=== PATIENT | male | born 1955 | race Caucasian/White ===

== ENCOUNTER 2024-10-16 17:36 | Inpatient (IN) | payer MEDICARE, SELFPAY ==
[2024-10-16] VITALS (7 sets, daily range): BP systolic 93–145; BP diastolic 66–91; PULSE 97–146; RESP 11–20; TEMP 36.7; O2SAT 93–99; BMI 28.5
--- NOTE | 2024-10-16 17:42 | CTR_ITS ---
PROCEDURE INFORMATION: Exam: CT Abdomen And Pelvis With Contrast Exam date and time: 10/16/2024 6:17 PM Age: 69 years old Clinical indication: Vomiting. Surgery type: Appy; Patient HX: Hematemesis with tarry stool. ; Abd pain/upper gi bleed TECHNIQUE: Imaging protocol: Computed tomography of the abdomen and pelvis with contrast. Radiation optimization: All CT scans at this facility use at least one of these dose optimization techniques: automated exposure control; mA and/or kV adjustment per patient size (includes targeted exams where dose is matched to clinical indication); or iterative reconstruction. Contrast material: OMNI 350; Contrast volume: 100 ml; Contrast route: INTRAVENOUS (IV); COMPARISON: No relevant prior studies available. RADIATION DOSE METRICS: Total DLP (mGy-cm): 817.34 FINDINGS: Esophagus: There is mucosal thickening of the distal esophagus which is dilated and fluid-filled. Diaphragm: Small hiatal hernia. Liver: Normal. No mass. Gallbladder and biliary ducts: Normal. No calcified stones. No ductal dilation. Pancreas: Normal. No ductal dilation. Spleen: Normal. No splenomegaly. Adrenal glands: Normal. No mass. Kidneys and ureters: Normal. No hydronephrosis. Stomach and bowel: There is a focus of extraluminal inflammation with central fat density in the mesentery adjacent to the distal descending colon. This is consistent with acute epiploic appendagitis. Appendix: No evidence of appendicitis. Intraperitoneal space: Unremarkable. No free air. No significant fluid collection. Vasculature: Unremarkable. No abdominal aortic aneurysm. Lymph nodes: Unremarkable. No enlarged lymph nodes. Urinary bladder: Unremarkable as visualized. Reproductive: Prostate gland indents the base of the bladder consistent with median lobe enlargement. Bones/joints: There are degenerative changes in the visualized spine. Chronic anterior compression fracture at the anterior aspect of the L3 superior endplate. There are lower lumbar broad-based disc osteophyte complexes contributing to canal and bilateral neural foramina narrowing. Soft tissues: Unremarkable. CT/CT abdomen pelvis w con* [id number] IMPRESSION: 1. There is mucosal thickening of the distal esophagus which is dilated and fluid-filled. 2. Acute epiploic appendagitis adjacent to the distal descending colon. 3. Prostate gland indents the base of the bladder consistent with median lobe enlargement.
--- NOTE | 2024-10-16 17:42 | ECG_ITS ---
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 Measurements Intervals [place] Rate: 102 P: 57 DC: 148 QRS: 39 QRSD: 88 T: 61 QT: 326 QTc: 426 Interpretive Statements SINUS TACHYCARDIA No previous ECG available for comparison Electronically Signed On 10-18-2024 20:18:19 DRAFTING DETAILER by Terrence Browne M.D. [id number]
[2024-10-16 17:51] LABS: Basophils # 0.1 10^3/uL (0.0-0.1); Basophils % 0.7 %; Eosinophils # 0.1 10^3/uL (0.0-0.8); Eosinophils % 1.1 %; Hematocrit 38.1 % (37-53); Lymphocytes # 2.5 10^3/uL (0.8-4.8); Lymphocytes % 21.2 %; Mean Corpuscular HGB Conc 31.5 g/dL (30-55); Mean Corpuscular Hemoglobin 30.7 pg (27-33); Mean Corpuscular Volume 97.4 fl (82-101); Monocytes # 0.9 10^3/uL (0.2-0.9); Monocytes % 7.4 %; Neutrophils % 69.3 %; Nucleated Red Blood Cells % 0 %; Platelet Count 256 10^3/cmm (157-399); Red Blood Count 3.91 10^6/uL (3.85-5.65); Red Cell Distribution Width 12.2 % (12.1-15.1); White Blood Count 11.68 10^3/uL (3.29-11.43)
--- NOTE | 2024-10-16 17:56 | ED_ITS ---
Documented by User: Miguel Coughlin DO 10/19/24 14:56 HPI - GI Bleed 2 General: Chief complaint: GI Bleed Stated complaint: gi bleed Time Seen by Provider: 10/16/24 17:40 History of Present Illness: 69-year-old male presents emergency room via EMS with complaint of sudden onset of hematemesis 30 minutes prior to arrival. He had melanic stools beginning yesterday and some maroonish discoloration of the stool today. He is on clopidogrel no other anticoagulants. He is not have a history of alcoholic liver cirrhosis or any or GUADARRAMA. He has no known previous history of GI bleed or transfusions. He has some mild epigastric discomfort. Associated symptoms: Denies abdominal pain, chills, fever(s) or rash Related Data Home Medications Medication Instructions Recorded Confirmed hydroxyzine HCl 25 mg tablet 25 mg PO 1XD 10/17/24 10/17/24 Previous Rx's Medication Instructions Recorded ondansetron 4 mg disintegrating 4 mg PO Q8H PRN nausea and 10/19/24 tablet vomiting 10 days #30 tabs pantoprazole 40 mg tablet,delayed 40 mg PO BID 4 weeks #56 tabs 10/19/24 release (Protonix) sucralfate 1 gram tablet (Carafate) 1 g PO BID 4 weeks #56 tabs 10/19/24 Allergies Allergy/AdvReac Type Severity Reaction Status Date / Time doxycycline Allergy Mild ALGY-Rash Verified 10/17/24 10:29 Beef Containing Products Allergy ALGY-Hives Verified 10/17/24 10:28 Review of Systems 2 Const: Denies: fever(s) or chills Card: Denies: chest pain Resp: Denies: dyspnea GI: Denies: abdominal pain : Denies: dysuria, urinary frequency or urinary urgency Musc: Denies: neck pain or back pain Skin/Breast: Denies: rash PFSH ED 2 PFSH: Medical History (Updated 10/17/24 @ 12:56 by Mindy Whitaker MD) History of CAD (coronary artery disease) Surgical History (Updated 10/16/24 @ 21:27 by Jamari Holguin MD) History of appendectomy History of colonoscopy Family History Mother Alzheimer's dementia Social History (Updated 10/16/24 @ 21:28 by Jamari Holguin MD) Smoking and tobacco/nicotine status: never used tobacco/nicotine Alcohol intake: current Alcohol intake frequency: 0-2 Drinks per Day Substance/Drug Use: never Physical Exam 2 Const: GENERAL APPEARANCE: cooperative ORIENTATION/CONSCIOUSNESS: Yes awake, Yes oriented to person, Yes oriented to place and Yes oriented to time HENMT: COMMON NORMALS: normocephalic, atraumatic and hearing grossly normal bilaterally HEAD & SCALP: normocephalic and atraumatic Resp: COMMON NORMALS: normal respiratory effort, No retractions, No use of accessory muscles and clear to auscultation bilaterally AUSCULTATION: clear to auscultation bilaterally Cardio: COMMON NORMALS: regular rate, regular rhythm and No murmurs present (Cardio) RATE: regular rate RHYTHM: regular rhythm GI: COMMON NORMALS: No hepatosplenomegaly present AUSCULTATION: Yes normoactive bowel sounds PALPATION: Yes Tenderness to palpation present (GI), No Guarding due to palpation present (GI) and Yes No hepatosplenomegaly present Extremity: COMMON NORMALS: normal to inspection, capillary refill normal, no clubbing, cyanosis or edema, no calf tenderness and no pedal edema Neuro: SENSORIUM/ORIENTATION: Yes oriented to person, Yes oriented to place and Yes oriented to time Skin: COMMON NORMALS: no rashes or lesions noted GENERAL SKIN EXAM: no rashes or lesions noted Course 2 Vital Signs: Vital signs: Vital Signs Temperature 98.1 F 10/19/24 07:54 Pulse Rate 103 H 10/19/24 10:44 Respiratory Rate 16 10/19/24 11:10 Blood Pressure 145/72 10/19/24 10:44 Pulse Oximetry 94 10/19/24 07:54 Oxygen Delivery Me thod Room Air 10/19/24 07:54 Oxygen Flow Rate 1 10/18/24 04:00 MDM - GI Bleed Medical Decision Making Care signed out to Dr. Borjas at change of shift. See final notes for diagnosis and disposition. Lab Data 10/19/24 12:26 10/19/24 04:28 Radiology Impressions Abdomen/Pelvis CT 10/16/24 17:42 IMPRESSION: 1. There is mucosal thickening of the distal esophagus which is dilated and fluid-filled. 2. Acute epiploic appendagitis adjacent to the distal descending colon. 3. Prostate gland indents the base of the bladder consistent with median lobe enlargement. Chest X-Ray 10/18/24 16:47 IMPRESSION: As above. Laboratory Results WBC 11.68 10^3/uL (3.29-11.43) H 10/16/24 17:41 RBC 3.91 10^6/uL (3.85-5.65) 10/16/24 17:41 Hgb 12.00 g/dL (11.27-16.99) 10/16/24 17:41 Hct 38.1 % (37-53) 10/16/24 17:41 MCV 97.4 fl (82-101) 10/16/24 17:41 MCH 30.7 pg (27-33) 10/16/24 17:41 MCHC 31.5 g/dL (30-55) 10/16/24 17:41 RDW 12.2 % (12.1-15.1) 10/16/24 17:41 Plt Count 256 10^3/cmm (157-399) 10/16/24 17:41 MPV 10.0 fL (7.4-10.4) 10/16/24 17:41 Neut % (Auto) 69.3 % 10/16/24 17:41 Lymph % (Auto) 21.2 % 10/16/24 17:41 Dickinson % (Auto) 7.4 % 10/16/24 17:41 Eos % (Auto) 1.1 % 10/16/24 17:41 Baso % (Auto) 0.7 % 10/16/24 17:41 Neut # (Auto) 8.10 10^3/uL (1.8-7.7) H 10/16/24 17:41 Lymph # (Auto) 2.5 10^3/uL (0.8-4.8) 10/16/24 17:41 Dickinson # (Auto) 0.9 10^3/uL (0.2-0.9) 10/16/24 17:41 Eos # (Auto) 0.1 10^3/uL (0.0-0.8) 10/16/24 17:41 Baso # (Auto) 0.1 10^3/uL (0.0-0.1) 10/16/24 17:41 Nucleated RBC % (auto) 0 % 10/16/24 17:41 Nucleated RBCs # 0.0 /100WBC 10/16/24 17:41 PT 13.60 SECONDS (12.1-14.9) 10/16/24 17:41 INR 1.01 (0.8-1.2) 10/16/24 17:41 APTT 22.5 SECONDS (23.9-36.7) L 10/16/24 17:41 Sodium 141 mmol/L (136-145) 10/16/24 17:41 Potassium 4.3 mmol/L (3.5-5.1) 10/16/24 17:41 Chloride 108 mmol/L (98-107) H 10/16/24 17:41 Carbon Dioxide 22 mmol/L (22-29) 10/16/24 17:41 Anion Gap 15.3 (5-19) 10/16/24 17:41 BUN 37 mg/dL (8-23) H 10/16/24 17:41 Creatinine 1.1 mg/dL (0.7-1.2) 10/16/24 17:41 GFR Calculation Not Reportable 10/16/24 17:41 Glucose 154 mg/dL (65-115) H 10/16/24 17:41 Calculated Osmolality 304 mOsm/kg (285-295) H 10/16/24 17:41 Calcium 8.7 mg/dL (8.5-10.5) 10/16/24 17:41 Iron 165 ug/dL (59-158) H 10/16/24 17:41 TIBC 322 mcg/dl 10/16/24 17:41 % Saturation 51.2 % (20-50) H 10/16/24 17:41 Unsat Iron Binding 157 ug/dL (112-347) 10/16/24 17:41 Ferritin 42 ng/mL (30-400) 10/16/24 17:41 Total Bilirubin 0.3 mg/dL (0.15-1.2) 10/16/24 17:41 AST 13 U/L (0-40) 10/16/24 17:41 ALT 18 U/L (0-41) 10/16/24 17:41 Alkaline Phosphatase 69 U/L (40-130) 10/16/24 17:41 Troponin T Baseline 8 ng/L (0-15) 10/16/24 17:41 Total Protein 6.0 g/dL (6.6-8.7) L 10/16/24 17:41 Albumin 3.6 g/dL (3.5-5.2) 10/16/24 17:41 Globulin 2.4 g/dL (1.3-4.6) 10/16/24 17:41 Blood Type B Positive 10/16/24 18:37 Rho(D) Type Rh positive 10/16/24 18:37 Antibody Screen Negative 10/16/24 18:37 Discharge Plan Discharge Patient Disposition: Admitted As Inpatient Admit Provider: Jamari Holguin Clinical Impression: Upper gastrointestinal hemorrhage Condition: Fair Discharge Diet: Usual diet Discharge Activity: Resume usual activity Coding Level of Care Code ED Public Speaking Coach for Chg Fwd Documented by User: Drew Borjas DO 10/16/24 21:20 HPI - GI Bleed 2 General: Chief complaint: GI Bleed Stated complaint: gi bleed Time Seen by Provider: 10/16/24 17:40 Related Data Home Medications Medication Instructions Recorded Confirmed hydroxyzine HCl 25 mg tablet 25 mg PO 1XD 10/17/24 10/17/24 Previous Rx's Medication Instructions Recorded ondansetron 4 mg disintegrating 4 mg PO Q8H PRN nausea and 10/19/24 tablet vomiting 10 days #30 tabs pantoprazole 40 mg tablet,delayed 40 mg PO BID 4 weeks #56 tabs 10/19/24 release (Protonix) sucralfate 1 gram tablet (Carafate) 1 g PO BID 4 weeks #56 tabs 10/19/24 Allergies Allergy/AdvReac Type Severity Reaction Status Date / Time doxycycline Allergy Mild ALGY-Rash Verified 10/17/24 10:29 Beef Containing Products Allergy ALGY-Hives Verified 10/17/24 10:28 PFSH ED 2 PFSH: Medical History (Updated 10/17/24 @ 12:56 by Mindy Whitaker MD) History of CAD (coronary artery disease) Surgical History (Updated 10/16/24 @ 21:27 by Jamari Holguin MD) History of appendectomy History of colonoscopy Family History Mother Alzheimer's dementia Social History (Updated 10/16/24 @ 21:28 by Jamari Holguin MD) Smoking and tobacco/nicotine status: never used tobacco/nicotine Alcohol intake: current Alcohol intake frequency: 0-2 Drinks per Day Substance/Drug Use: never Course 2 Vital Signs: Vital signs: Vital Signs Temperature 98.1 F 10/19/24 07:54 Pulse Rate 103 H 10/19/24 10:44 Respiratory Rate 16 10/19/24 11:10 Blood Pressure 145/72 10/19/24 10:44 Pulse Oximetry 94 10/19/24 07:54 Oxygen Delivery Me thod Room Air 10/19/24 07:54 Oxygen Flow Rate 1 10/18/24 04:00 MDM - GI Bleed Medical Decision Making Care signed out to Dr. Borjas at change of shift. See final notes for diagnosis and disposition. 69-year-old male checked out at shift change. This gentleman presents with an upper GI bleed history. He has vomited several times in the emergency department, during which she becomes very tachycardic, and his blood pressure drops. Otherwise, he has been slightly tachycardic in the 110s, with normotensive blood pressures. His hemoglobin is 12. His platelet count is normal. He has no history of alcoholism or liver disease. His liver enzymes are normal. Initial troponin is 8. Type and screen is completed. CT shows mucosal thickening of the distal esophagus which is dilated and fluid-filled. He is not aware of any food bolus type episode at home. Hemoglobin 2 hours later is 11. He has been given IV Protonix, IV Zofran, and fluid. He has also been given tranexamic acid. Morphine and Haldol have been given for pain/Spasm, and nausea as well. Spoke with surgery. They are willing to consult, and scope if necessary. Spoke with hospitalist. He will go to the ICU because of the episodes of tachycardia. Hospitalist is seeing the patient in the ER. Lab Data 10/19/24 12:26 10/19/24 04:28 Radiology Impressions Abdomen/Pelvis CT 10/16/24 17:42 IMPRESSION: 1. There is mucosal thickening of the distal esophagus which is dilated and fluid-filled. 2. Acute epiploic appendagitis adjacent to the distal descending colon. 3. Prostate gland indents the base of the bladder consistent with median lobe enlargement. Chest X-Ray 10/18/24 16:47 IMPRESSION: As above. Laboratory Results WBC 11.68 10^3/uL (3.29-11.43) H 10/16/24 17:41 RBC 3.91 10^6/uL (3.85-5.65) 10/16/24 17:41 Hgb 12.00 g/dL (11.27-16.99) 10/16/24 17:41 Hct 38.1 % (37-53) 10/16/24 17:41 MCV 97.4 fl (82-101) 10/16/24 17:41 MCH 30.7 pg (27-33) 10/16/24 17:41 MCHC 31.5 g/dL (30-55) 10/16/24 17:41 RDW 12.2 % (12.1-15.1) 10/16/24 17:41 Plt Count 256 10^3/cmm (157-399) 10/16/24 17:41 MPV 10.0 fL (7.4-10.4) 10/16/24 17:41 Neut % (Auto) 69.3 % 10/16/24 17:41 Lymph % (Auto) 21.2 % 10/16/24 17:41 Dickinson % (Auto) 7.4 % 10/16/24 17:41 Eos % (Auto) 1.1 % 10/16/24 17:41 Baso % (Auto) 0.7 % 10/16/24 17:41 Neut # (Auto) 8.10 10^3/uL (1.8-7.7) H 10/16/24 17:41 Lymph # (Auto) 2.5 10^3/uL (0.8-4.8) 10/16/24 17:41 Dickinson # (Auto) 0.9 10^3/uL (0.2-0.9) 10/16/24 17:41 Eos # (Auto) 0.1 10^3/uL (0.0-0.8) 10/16/24 17:41 Baso # (Auto) 0.1 10^3/uL (0.0-0.1) 10/16/24 17:41 Nucleated RBC % (auto) 0 % 10/16/24 17:41 Nucleated RBCs # 0.0 /100WBC 10/16/24 17:41 PT 13.60 SECONDS (12.1-14.9) 10/16/24 17:41 INR 1.01 (0.8-1.2) 10/16/24 17:41 APTT 22.5 SECONDS (23.9-36.7) L 10/16/24 17:41 Sodium 141 mmol/L (136-145) 10/16/24 17:41 Potassium 4.3 mmol/L (3.5-5.1) 10/16/24 17:41 Chloride 108 mmol/L (98-107) H 10/16/24 17:41 Carbon Dioxide 22 mmol/L (22-29) 10/16/24 17:41 Anion Gap 15.3 (5-19) 10/16/24 17:41 BUN 37 mg/dL (8-23) H 10/16/24 17:41 Creatinine 1.1 mg/dL (0.7-1.2) 10/16/24 17:41 GFR Calculation Not Reportable 10/16/24 17:41 Glucose 154 mg/dL (65-115) H 10/16/24 17:41 Calculated Osmolality 304 mOsm/kg (285-295) H 10/16/24 17:41 Calcium 8.7 mg/dL (8.5-10.5) 10/16/24 17:41 Iron 165 ug/dL (59-158) H 10/16/24 17:41 TIBC 322 mcg/dl 10/16/24 17:41 % Saturation 51.2 % (20-50) H 10/16/24 17:41 Unsat Iron Binding 157 ug/dL (112-347) 10/16/24 17:41 Ferritin 42 ng/mL (30-400) 10/16/24 17:41 Total Bilirubin 0.3 mg/dL (0.15-1.2) 10/16/24 17:41 AST 13 U/L (0-40) 10/16/24 17:41 ALT 18 U/L (0-41) 10/16/24 17:41 Alkaline Phosphatase 69 U/L (40-130) 10/16/24 17:41 Troponin T Baseline 8 ng/L (0-15) 10/16/24 17:41 Total Protein 6.0 g/dL (6.6-8.7) L 10/16/24 17:41 Albumin 3.6 g/dL (3.5-5.2) 10/16/24 17:41 Globulin 2.4 g/dL (1.3-4.6) 10/16/24 17:41 Blood Type B Positive 10/16/24 18:37 Rho(D) Type Rh positive 10/16/24 18:37 Antibody Screen Negative 10/16/24 18:37 All radiology interpretation(s) finalized by discharge Discharge Plan Discharge Patient Disposition: Admitted As Inpatient Admit Provider: Jamari Holguin Clinical Impression: Upper gastrointestinal hemorrhage Condition: Fair Discharge Diet: Usual diet Discharge Activity: Resume usual activity Coding Level of Care Code ED Public Speaking Coach for Pamela Burgess
[2024-10-16 18:04] LABS: INR 1.01 (0.8-1.2)
[2024-10-16 18:05] LABS: Partial Thromboplastin Time 22.5 SECONDS (23.9-36.7)
[2024-10-16 18:08] LABS: Alanine Aminotransferase 18 U/L (0-41); Albumin Level 3.6 g/dL (3.5-5.2); Alkaline Phosphatase 69 U/L (40-130); Anion Gap 15.3 (5-19); Aspartate Amino Transferase 13 U/L (0-40); Blood Urea Nitrogen 37 mg/dL (8-23); Calcium 8.7 mg/dL (8.5-10.5); Carbon Dioxide 22 mmol/L (22-29); Chloride 108 mmol/L (98-107); Creatinine Clr Calc Pharmacy 73.7582; Globulin 2.4 g/dL (1.3-4.6); Glucose 154 mg/dL (65-115); Osmolality Calculated 304 mOsm/kg (285-295); Potassium 4.3 mmol/L (3.5-5.1); Sodium 141 mmol/L (136-145); Total Bilirubin 0.3 mg/dL (0.15-1.2)
[2024-10-16] MEDS: iohexol 350 mg/mL 500 mL Btl (per mL) IV (18:18)
[2024-10-16] MEDS: tranexamic acid 1,000 MG/100 ML PREMIX 600 MG IV (18:28)
[2024-10-16] MEDS: pantoprazole 40 mg SDV 80 MG IVP (18:29)
[2024-10-16] MEDS: ondansetron 2 mg/ML SDV 2 mL 4 MG IVP (19:23)
[2024-10-16] MEDS: sodium chloride 0.9% 1,000 ML 999 ML IV (19:23)
[2024-10-16] MEDS: morphine 4 mg/mL SDV 1 mL IVP (20:01)
--- NOTE | 2024-10-16 20:01 | PC.NURSE ---
Pt. has intermittent back pain and spasms that he states that he has to stand up for. During episodes , pt. is diaphoretic and pale. Ekg done on patient and morphine given for back pain. Dr. Borjas notified.
[2024-10-16 20:46] LABS: Hematocrit 33.4 % (37-53)
[2024-10-16 20:50] LABS: Troponin(5th) Baseline 8 ng/L (0-15)
[2024-10-16 21:02] LABS: Troponin 5 2HR 22.27 ng/L (0-15)
[2024-10-16] MEDS: haloperidol inj 5 mg/mL INJ 1 mL 3 MG IVP (21:03)
[2024-10-16 21:09] LABS: Troponin 5 2HR Delta 14.27 ABS# (0-10)
--- NOTE | 2024-10-16 21:25 | P.HP_ITS ---
Providers/Chief Complaint 2 Admitting Physician: Jamari Holguin MD Chief Complaint: gi bleed History of Present Illness Gianni Maurer is a 69 year old male with a past medical history of CAD 4 stents placed, many years ago, is on aspirin and Plavix, history of BPH, who presents to [facility] due to coffee-ground emesis, black tarry stools. Currently patient alert oriented x 3, following all commands, heart rates in the 120s sinus tachycardia blood pressure 107/75, 93% on room air, he is alert oriented x 3, following all commands. Patient tells me that he woke up this morning, with coffee-ground emesis in his mouth, throughout the day, he continued to have episodes of coffee-ground emesis and black tarry stools associate with nausea, vomiting, retching. Does report feeling lightheaded and dizzy, no chest pain, no palpitations, no shortness of breath. He does use aspirin and Plavix. Denies any NSAID use. Denies a history of gastric cancer, or gastric ulcers. He denies ever having a EGD. But did have a colonoscopy 2 weeks ago which was within normal limits done in [place]. He does report a chronic history of acid reflux disease. Review of Systems 2 Const: Denies: fever(s) Card: Denies: chest pain Resp: Denies: dyspnea GI: Reports: nausea, vomiting and melena PFSH Acute 2 PFSH: Medical History (Updated 10/16/24 @ 21:29 by Jamari Holguin MD) History of CAD (coronary artery disease) Surgical History (Updated 10/16/24 @ 21:27 by Jamari Holguin MD) History of appendectomy History of colonoscopy Family History Mother Alzheimer's dementia Social History (Updated 10/16/24 @ 21:28 by Jamari Holguin MD) Smoking and tobacco/nicotine status: never used tobacco/nicotine Alcohol intake: current Alcohol intake frequency: 0-2 Drinks per Day Substance/Drug Use: never Vitals/I&O/Wt Last Vital Signs Temp 98.1 F 10/16/24 17:37 Pulse 118 H 10/16/24 20:43 Resp 11 L 10/16/24 20:43 BP 107/75 10/16/24 20:43 Pulse Ox 93 10/16/24 20:43 O2 Del Method Room Air 10/16/24 17:37 Weight last 48 hrs Weight 95.254 kg Physical Exam 2 Const: COMMON NORMALS: no acute distress and patient oriented x3 Resp: COMMON NORMALS: normal respiratory effort, No retractions, No use of accessory muscles and clear to auscultation bilaterally AUSCULTATION: clear to auscultation bilaterally Cardio: COMMON NORMALS: no JVD, regular rate, regular rhythm, S1 normal heart sound present and S2 normal heart sound present RATE: tachycardic RHYTHM: regular rhythm HEART SOUNDS: S1 normal heart sound present and S2 normal heart sound present GI: COMMON NORMALS: Normal to inspection, nondistended, normoactive bowel sounds present, Soft to palpation and non-tender Extremity: COMMON NORMALS: no pedal edema Neuro: COMMON NORMALS: patient oriented x3, CN's II-XII intact bilaterally and moves all extremities Psych: COMMON NORMALS: mental status grossly normal Data 10/16/24 20:39 10/16/24 17:41 A&P Assessment and plan (1) GI bleed: (2) Upper gastrointestinal hemorrhage: Plan Upper GI bleed -With black tarry stools, coffee-ground emesis Plan -Keep n.p.o. -IV fluids -Protonix -Carafate -Monitor hemodynamics -Monitor hemoglobin every 4 hours -Transfuse if hemoglobin less than 7 ? Reglan, Zofran, promethazine for nausea vomiting # Full code # SCDs for DVT prophylaxis Attestations 2 Medical Necessity Statement*: Patient requires hospitalization, inpatient, greater than 2 minutes, for upper GI bleed, sinus tachycardia Diagnoses GI bleed K92.2 Upper gastrointestinal hemorrhage K92.2
--- NOTE | 2024-10-16 21:49 | PC.NURSE ---
Pt.'s called me in the room and states that the patient is still having nausea and spasms. Pt. has requested ice chips to wet his mouth.
--- NOTE | 2024-10-16 22:14 | ECG_ITS ---
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 Measurements Intervals [place] Rate: 130 P: 72 UT: 158 QRS: 55 QRSD: 89 T: 65 QT: 283 QTc: 417 Interpretive Statements SINUS TACHYCARDIA MINIMAL ST DEPRESSION [0.025+ mV ST DEPRESSION] ABNORMAL RHYTHM ECG INTERPRETATION BASED ON A DEFAULT AGE OF 40 YEARS Compared to ECG 10/16/2024 17:40:51 ST (T wave) deviation now present Electronically Signed On 10-18-2024 20:32:42 FORMATION TESTING OPERATOR by Terrence Browne M.D. [email or web address]
[2024-10-17] VITALS (51 sets, daily range): BP systolic 97–144; BP diastolic 57–83; PULSE 85–141; RESP 13–24; TEMP 36.8–37.5; O2SAT 88–97
[2024-10-17] MEDS: morphine 4 mg/mL SDV 1 mL 2 MG IVP ×5 (00:20→23:57)
[2024-10-17] MEDS: sodium chloride 0.9% 1,000 ML 75 ML IV ×3 (00:22→22:10)
[2024-10-17 00:26] LABS: Hematocrit 32.6 % (37-53)
[2024-10-17] MEDS: promethazine 25 mg/mL SDV 1 mL 12.5 MG IM (00:42)
[2024-10-17] MEDS: metoclopramide 5 mg/mL SDV 2 mL IVP ×2 (01:08→07:26)
[2024-10-17 01:45] LABS: Ferritin 42 ng/mL (30-400); Iron 165 ug/dL (59-158); Percent Saturation 51.2 % (20-50); Total Iron Binding Capacity 322 mcg/dl; Unsaturated Iron Binding 157 ug/dL (112-347)
[2024-10-17 02:39] LABS: Troponin 5 6HR 29.22 ng/L (0-15)
[2024-10-17 02:41] LABS: Lactic Sepsis W/Reflex 2.6 mmol/L (0.5-2.2)
[2024-10-17 02:44] LABS: Troponin 5 6HR Delta 21.22 ng/L (0-12)
[2024-10-17 02:45] LABS: Reflex Lactate Order REFLEX LACTIC ORDERD
[2024-10-17] MEDS: pantoprazole 40 mg SDV IVP ×2 (03:24→15:59)
[2024-10-17] MEDS: ondansetron 2 mg/ML SDV 2 mL 4 MG IVP (03:25)
[2024-10-17 05:30] LABS: Hematocrit 34.6 % (37-53)
[2024-10-17 05:57] LABS: Lactic Acid level (Lactate) 2.2 mmol/L (0.5-2.2)
--- NOTE | 2024-10-17 07:23 | P.CONIM_ITS ---
Providers/Reason For Consult 2 Consulting Physician/Specialty*: General Surgery Reason for Consult*: Acute upper GI bleeding Attending Physician: Mindy Whitaker MD History of Present Illness History of Present Illness Gianni Maurer is a 69 year old male Who presents that with hematemesis and melena to the emergency department current to patient has been having melena for couple of days and today before admission he actually vomited some red blood all, after initial resuscitation emergency department has not had any more episodes of vomiting. Has been consistently tachycardic but other than that BP has been within normal limits and hemoglobin has only downtrended to points from 12-10. His troponin is slightly elevated and has trended up. I was consulted for upper endoscopy for acute upper GI bleeding Review of Systems 2 General: Reports: 10 or more systems reviewed and unremarkable except in HPI and below Medications/Allergies Home Medications Medication Instructions Recorded Confirmed Last Taken Type clopidogrel 75 mg tablet 1 mg PO 1XD 10/17/24 10/17/24 10/16/24 07:00 History hydroxyzine HCl 25 mg tablet 25 mg PO 1XD 10/17/24 10/17/24 10/15/24 21:00 History Allergies Allergy/AdvReac Type Severity Reaction Status Date / Time doxycycline Allergy Mild ALGY-Rash Verified 10/17/24 01:02 Current Medications Generic Name Dose Route Start Last Admin Trade Name Freq PRN Reason Stop Dose Admin Sodium Chloride 1,000 mls @ 75 mls/hr 10/16/24 22:35 10/17/24 00:22 Sodium Chloride 0.9% IV 75 mls/hr .[id number] KAREN Administration Metoclopramide HCl 5 mg 10/16/24 23:13 10/17/24 01:08 Metoclopramide 5 Mg/Ml Sdv 2 Ml IVP 5 mg Q6H PRN Administration NAUSEA AND VOMITING Morphine Sulfate 2 mg 10/16/24 22:35 10/17/24 00:20 Morphine 4 Mg/Ml Sdv 1 Ml IVP 2 mg Q4H PRN Administration SEVERE PAIN Ondansetron HCl 4 mg 10/16/24 23:12 10/17/24 03:25 Ondansetron 2 Mg/Ml Sdv 2 Ml IVP 4 mg Q8H PRN Administration vomiting, or N/V if npo Pantoprazole Sodium 40 mg 10/17/24 04:00 10/17/24 03:24 Pantoprazole 40 Mg Sdv IVP 40 mg Q12H KAREN Administration Promethazine HCl 12.5 mg 10/16/24 23:13 10/17/24 00:42 Promethazine 25 Mg/Ml Sdv 1 Ml IM 12.5 mg Q6H PRN Administration NAUSEA Sucralfate 1 gm 10/16/24 22:35 10/17/24 04:21 Sucralfate 1 Gm/10 Ml Oral Liq Udc PO Not Given Q6H KAREN PFSH Acute 2 PFSH: Medical History (Updated 10/16/24 @ 21:29 by Jamari Holguin MD) History of CAD (coronary artery disease) Surgical History (Updated 10/16/24 @ 21:27 by Jamari Holguin MD) History of appendectomy History of colonoscopy Family History Mother Alzheimer's dementia Social History (Updated 10/16/24 @ 21:28 by Jamari Holguin MD) Smoking and tobacco/nicotine status: never used tobacco/nicotine Alcohol intake: current Alcohol intake frequency: 0-2 Drinks per Day Substance/Drug Use: never Vitals/I&O/Wt Last Vital Signs Temp 98.6 F 10/17/24 00:00 Pulse 112 H 10/17/24 06:00 Resp 14 10/17/24 04:00 BP 118/66 10/17/24 04:00 Pulse Ox 93 10/17/24 04:00 O2 Del Method Room Air 10/17/24 00:23 10/16/24 10/17/24 10/17/24 22:59 06:59 14:59 Output Total 220 / 220 Balance -220 / -220 Weight last 48 hrs Weight 210 lb Weight 210 lb Physical Exam 2 Narrative: General : Patient is well developed , no acute distress, oriented x3 Head : Normal cephalic, a-traumatic. Nose : Mucous membranes are without erythema. Lungs : Equal chest rise bilaterally, no use of accessory muscles, trachea is midline. CV : Rate and rhythm are normal. Abdomen : Minimal epigastric tenderness Extremities : No edema. Upper extremities are normal bilaterally. Back : non-tender to palpation, no CVA tenderness. Data 10/17/24 05:11 10/16/24 17:41 A&P Assessment and plan (1) Upper gastrointestinal hemorrhage: Plan After a complete history physical examination and review of all available clinical data the following is my assessment. Patient presenting with acute upper GI bleeding and upper endoscopy is indicated for bleeding control. I discussed all recent benefits of the procedure with the patient including the risks of rebleeding, perforation, lack of bleeding control, injury to soft tissue of the mouth and pharynx, need for additional interventions, injury to the teeth. He shows understanding wishes to proceed. I have explained to the patient in the case of rebleed he will require transfer to higher level of care for evaluation by GI and possible IR intervention. He shows understanding and is agreeable. Coding Level of Care Code 11982 Diagnoses Upper gastrointestinal hemorrhage K92.2
--- NOTE | 2024-10-17 07:41 | P.ANESASSM_ITS ---
Pre-Anesthetic Assessment Height/Weight: Height 6 ft Weight 210 lb Temp Pulse Resp BP Pulse Ox O2 Del Method 98.6 F 112 H 14 118/66 93 Room Air 10/17/24 00:00 10/17/24 06:00 10/17/24 04:00 10/17/24 04:00 10/17/24 04:00 10/17/24 00:23 Preop Diagnosis: Hematic emesis Operation Date: 10/17/24 09:05 Proposed Procedures p EGD(Not Applicable) - Rajeev Khalil MD Operation Date: 10/17/24 09:00 Proposed Procedures p EGD(Not Applicable) - Rajeev Khalil MD Was Beta Bhaskar taken within 24 hours: N/A Was Clonidine taken within 24 hours: N/A Social No alcohol and No tobacco Exam alert, oriented x 3, clear to auscultation bilaterally and regular rate & rhythm Airway Submandibular: within normal limits Cervical ROM: within normal limits Mallampati: Class II Dentition: other (Edentulous) Anesthetic Plan ASA status: 3 Anesthesia: MAC Other: Patient initially presented to the hospital yesterday with coffee ground emesis and black tarry stools No prior issues with anesthesia Colonoscopy 2 weeks ago without issues Initial hemoglobin at admission was 12 and patient dropped to 11 while in the ER. AM hemoglobin 10.8 Patient is tachycardic, hemodynamically stable Patient has mildly elevated troponins, EKG showing sinus tachycardia with minimal ST depression Plan for MAC anesthetic Medications/Allergies Home Medications Medication Instructions Recorded Confirmed Last Taken Type clopidogrel 75 mg tablet 1 mg PO 1XD 10/17/24 10/17/24 10/16/24 07:00 History hydroxyzine HCl 25 mg tablet 25 mg PO 1XD 10/17/24 10/17/24 10/15/24 21:00 History Allergies Allergy/AdvReac Type Severity Reaction Status Date / Time doxycycline Allergy Mild ALGY-Rash Verified 10/17/24 01:02 Current Medications Generic Name Dose Route Start Last Admin Trade Name Freq PRN Reason Stop Dose Admin Sodium Chloride 1,000 mls @ 75 mls/hr 10/16/24 22:35 10/17/24 00:22 Sodium Chloride 0.9% IV 75 mls/hr .[id number] KAREN Administration Metoclopramide HCl 5 mg 10/16/24 23:13 10/17/24 01:08 Metoclopramide 5 Mg/Ml Sdv 2 Ml IVP 5 mg Q6H PRN Administration NAUSEA AND VOMITING Morphine Sulfate 2 mg 10/16/24 22:35 10/17/24 00:20 Morphine 4 Mg/Ml Sdv 1 Ml IVP 2 mg Q4H PRN Administration SEVERE PAIN Ondansetron HCl 4 mg 10/16/24 23:12 10/17/24 03:25 Ondansetron 2 Mg/Ml Sdv 2 Ml IVP 4 mg Q8H PRN Administration vomiting, or N/V if npo Pantoprazole Sodium 40 mg 10/17/24 04:00 10/17/24 03:24 Pantoprazole 40 Mg Sdv IVP 40 mg Q12H KAREN Administration Promethazine HCl 12.5 mg 10/16/24 23:13 10/17/24 00:42 Promethazine 25 Mg/Ml Sdv 1 Ml IM 12.5 mg Q6H PRN Administration NAUSEA Sucralfate 1 gm 10/16/24 22:35 10/17/24 04:21 Sucralfate 1 Gm/10 Ml Oral Liq Udc PO Not Given Q6H KAREN PFSH Anesthesia Medical History (Updated 10/16/24 @ 21:29 by Jamari Holguin MD) History of CAD (coronary artery disease) Surgical History (Updated 10/16/24 @ 21:27 by Jamari Holguin MD) History of appendectomy History of colonoscopy Family History Mother Alzheimer's dementia Social History (Updated 10/16/24 @ 21:28 by Jamari Holguin MD) Smoking and tobacco/nicotine status: never used tobacco/nicotine Alcohol intake: current Alcohol intake frequency: 0-2 Drinks per Day Substance/Drug Use: never Data Anesthesia 10/17/24 05:11 10/16/24 17:41 Short CBC 10/16/24 10/16/24 10/17/24 Range/Units 17:41 20:39 00:05 WBC 11.68 H (3.29-11.43) 10^3/uL Hgb 12.00 10.70 L 10.50 L (11.27-16.99) g/dL Hct 38.1 33.4 L 32.6 L (37-53) % MCV 97.4 (82-101) fl Plt Count 256 (157-399) 10^3/cmm Neut % (Auto) 69.3 % Neut # (Auto) 8.10 H (1.8-7.7) 10^3/uL 10/17/24 Range/Units 05:11 WBC (3.29-11.43) 10^3/uL Hgb 10.80 L (11.27-16.99) g/dL Hct 34.6 L (37-53) % MCV (82-101) fl Plt Count (157-399) 10^3/cmm Neut % (Auto) % Neut # (Auto) (1.8-7.7) 10^3/uL BMP 10/16/24 17:41 Sodium 141 Potassium 4.3 Chloride 108 H Carbon Dioxide 22 BUN 37 H Creatinine 1.1 Glucose 154 H Calcium 8.7 Cardiac Enzymes 10/16/24 10/16/24 10/17/24 Range/Units 17:41 20:39 02:02 Troponin T Baseline 8 (0-15) ng/L Troponin T 120 Minute 22.27 H (0-15) ng/L Delta Troponin T 14.27 H* (0-10) ABS# Troponin T Hi Sens 6Hr 29.22 H (0-15) ng/L Troponin T Hi Sens 6Hr Delta 21.22 H* (0-12) ng/L Liver Function 10/16/24 Range/Units 17:41 Total Bilirubin 0.3 (0.15-1.2) mg/dL AST 13 (0-40) U/L ALT 18 (0-41) U/L Alkaline Phosphatase 69 (40-130) U/L Albumin 3.6 (3.5-5.2) g/dL Blood Bank 10/16/24 18:37 Blood Type B Positive Rho(D) Type Rh positive Antibody Screen Negative Coags 10/16/24 17:41 PT 13.60 INR 1.01 APTT 22.5 L Cardiac Studies: 2 No Data to Display
--- NOTE | 2024-10-17 07:48 | PC.NURSE ---
GI Team here to get the patient for EGD. Report given to the team. Preop check list completed. updated on the plan of care and she is in route to the facility.
[2024-10-17] MEDS: EPINEPHrine 1 mg/mL INJ XX (08:14)
--- NOTE | 2024-10-17 08:22 | P.MISC_ITS ---
Miscellaneous Note Purpose of Documentation: Update on patient care Note: Upper endoscopy was done today, there are several ulcerations 2 in the lower esophagus 1 in the antrum of the stomach there is gastritis esophagitis and also duodenitis. Bleeding was likely from an ulcer that is in the distal esophagus just above the cardia, this did have what appeared to be a possible visible vessel but no pulsation no oozing no active bleeding, I decided to inject ep inephrine, a total of 5 cc of epinephrine were injected with good tissue response. In the cast soft continues downtrending hemoglobin on repeat hematemesis patient will require transfer to higher level of care for management by a GI provider and possible IR intervention. He needs high-dose PPI, will need to hold Plavix at least for 4 weeks until we repeat a new endoscopy. And patient will require Carafate liquid every 6 hours.
--- NOTE | 2024-10-17 08:25 | PC.NURSE ---
pt back from GI lab. GI team at bedside. recovery started.
--- NOTE | 2024-10-17 08:30 | ANE.PACU2 ---
Inpatient post-anesthesia follow up: Airway intact: Yes Vital signs: Temperature 98.3 F Pulse Rate 106 Respiratory Rate 18 Blood Pressure 128/79 Pulse Oximetry 94 Oxygen Delivery Me thod Room Air Oxygen Flow Rate Fraction of Inspir ed Oxygen Hydration adequate: Yes Nausea and vomiting: No Pain level: 1 Mental status: Baseline
--- NOTE | 2024-10-17 09:19 | P.PN_ITS ---
Subjective 2 Subjective: Per discussion w/ Gen Surg, Ok to start clear liquids. Patient is AOx3 w/ at bedside. He denies nausea/vomiting, pain, CP, palpitations, SOB, dizziness/light headedness, abdominal pain. Vitals/I&O/Wt Last Vital Signs Temp 98.3 F 10/17/24 08:25 Pulse 106 H 10/17/24 09:10 Resp 16 10/17/24 09:00 BP 128/79 10/17/24 09:10 Pulse Ox 90 10/17/24 09:10 O2 Del Method Room Air 10/17/24 09:10 10/16/24 10/17/24 10/17/24 22:59 06:59 14:59 Intake Total 1157.5 / 1157.5 Output Total 220 / 220 0 / 0 Balance -220 / -220 1157.5 / 1157.5 Weight last 48 hrs Weight 95.254 kg Weight 95.254 kg Physical Exam 2 Const: GENERAL APPEARANCE: cooperative and comfortable O RIENTATION/CONSCIOUSNESS: Yes awake, Yes oriented to person, Yes oriented to place and Yes oriented to time HENMT: COMMON NORMALS: normocephalic, atraumatic, external ears normal and Normal external nose present HEAD & SCALP: normocephalic and atraumatic N OSE: Normal external nose present EXTERNAL EAR: Yes external ears normal M OUTH: Normal oral and palatal mucosa present THROAT: posterior oropharynx normal Eye: COMMON NORMALS: Equal, round and reactive pupils present, EOMs intact bilaterally and conjunctivae normal CONJUNCTIVA: Yes conjunctivae normal P UPIL: Yes Equal, round and reactive pupils present Neck/C-Spine: COMMON NORMALS: full ROM, no lymphadenopathy, Thyroid normal and No carotid bruits GENERAL: Yes normal visual inspection and Yes trachea midline THYROID: Thyroid normal CERVICAL SPINE: Yes cervical ROM normal Lymph: OTHER: no cervical or supraclavicular LAD Resp: COMMON NORMALS: normal respiratory effort, No use of accessory muscles and clear to auscultation bilaterally AUSCULTATION: clear to auscultation bilaterally, no crackles, no rales, no rhonchi and no wheezes Cardio: OTHER: tachycardia. Regular rhythm. No m/r/g or clicks. GI: OTHER: BS+, NT, ND, no rebound tenderness, guarding or rigidity. No hepatosplenomegaly. Extremity: GENERAL: No clubbing, No cyanosis and No edema Neuro: SENSORIUM/ORIENTATION: Yes oriented to person, Yes oriented to place and Yes oriented to time CRANIAL NERVES: Yes CN normal except as noted S PEECH: speech normal SENSORY EXAM: No sensory level loss detected MOTOR EXAM: 5/5 motor strength present throughout and Normal motor muscle tone present throughout Psych: COMMON NORMALS: Normal thought process present and speech normal A PPEARANCE: Yes grossly normal ATTITUDE: Yes calm and Yes engaged A CTIVITY/MOTOR BEHAVIOR: Yes appropriate eye contact SPEECH: Yes normal speech MOOD & AFFECT: Yes euthymic mood THOUGHT PROCESS: Normal thought process present THOUGHT CONTENT: Yes Normal thought content present A TTENTION/CONCENTRATION: Yes attention grossly intact MEMORY/COGNITION: Yes memory grossly intact Skin: COMMON NORMALS: no rashes or lesions noted GENERAL SKIN EXAM: no rashes or lesions noted Data 10/17/24 11:04 10/16/24 17:41 A&P Assessment and plan (1) Upper gastrointestinal hemorrhage: (2) Acute blood loss anemia: Plan Mr. Maurer is a 69yo man w/ CAD s/p 4 stents placed from placed from approx 2009 t0 2011 who presented to [facility] on [facility]16[facility]24 w/ complaints of coffee-ground emesis & black tarry stools. Per HPI, He does use aspirin and Plavix. Denies any NSAID use. Denies a history of gastric cancer, or gastric ulcers. He denies ever having a EGD. But did have a colonoscopy 2 weeks ago which was within normal limits done in [place]. He does report a chronic history of acid reflux disease. He is s/p EGD on 10/17/2024 by Gen Surgery. Patient is s/p EGD on 10/17/2024 that showed Esophagitis as well as Esophageal ulcers in the lower w/ bleeding stigmata in the lower 1/3 of the esophagus. Gastric ulcers w/ gastritis were also noted in the gastric antrum. Duodenitis was noted with mid inflamation. Biopsies were not taken given the patient was on anticoagulation. Possisble bleeding ulcers were controlled with epinephrine injection. Per Gen Surg, if patient re-bleeds, he will need to be transferred for a higher level of care with GI and possible IR intervention. #Acute Upper GI bleed s/p EGD on 10/17 #Gastric & Esophageal ulcers -Continue IV Pantoprazole, Carafate q6h, -Transfuse if hemoglobin less than 7 ? Zofran, promethazine for nausea vomiting - Start clear liquid diet #Acute blood loss anemia - due to acute UGI bleed from esophageal and gastric ulcers - Monitor Hgb. #Sinus tachycardia: Secondary to GI bleed. Monitor. #CAD s/p 4 stents in [place]. - Hold plavix. 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 Per , he can have dairy. # Full code # SCDs for DVT prophylaxis Transfer to the floor if he tolerates clear liquids. Attestations 2 Medical Necessity Statement*: Patient needs to remain hospitalized to monitor his cbc, vital signs. Coding Level of Care Code 47197 Diagnoses Upper gastrointestinal hemorrhage K92.2 Acute blood loss anemia D62
[2024-10-17 11:33] LABS: Basophils % 0.3 %; Eosinophils % 0.1 %; Hematocrit 31.4 % (37-53); Lymphocytes # 1.9 10^3/uL (0.8-4.8); Mean Corpuscular HGB Conc 30.9 g/dL (30-55); Mean Corpuscular Hemoglobin 31.6 pg (27-33); Mean Corpuscular Volume 102.3 fl (82-101); Mean Platelet Volume 12.1 fL (7.4-10.4); Monocytes # 0.7 10^3/uL (0.2-0.9); Monocytes % 6.7 %; Neutrophils # 7.98 10^3/uL (1.8-7.7); Neutrophils % 74.6 %; Nucleated Red Blood Cells % 0 %; Platelet Count 73 10^3/cmm (157-399); Red Blood Count 3.07 10^6/uL (3.85-5.65); Red Cell Distribution Width 12.8 % (12.1-15.1)
[2024-10-17] MEDS: sucralfate 1 gm/10 mL Oral Liq UDC PO ×3 (11:52→22:09)
--- NOTE | 2024-10-17 23:30 | PC.NURSE ---
Patient transfered to room 250-2 via wheelchair, transfered with all belongings and chart, and settled in recliner in room. Call beckett placed within reach.
[2024-10-18] VITALS (13 sets, daily range): BP systolic 116–159; BP diastolic 68–84; PULSE 78–106; RESP 11–22; TEMP 36.5–36.9; O2SAT 90–98
[2024-10-18] MEDS: pantoprazole 40 mg SDV IVP ×2 (04:03→15:02)
[2024-10-18] MEDS: morphine 4 mg/mL SDV 1 mL 2 MG IVP ×2 (04:03→20:03)
[2024-10-18] MEDS: sucralfate 1 gm/10 mL Oral Liq UDC PO ×4 (04:03→23:12)
--- NOTE | 2024-10-18 07:09 | PM.PN ---
Subjective Subjective: Stable overnight, no more vomit no more bowel movements with blood. Abdominal pain has significantly improved. His vital signs have remained stable. Vitals/I&O/Wt Last Vital Signs Temp 98.0 F 10/18/24 04:00 Pulse 90 10/18/24 05:42 Resp 14 10/18/24 04:03 BP 116/68 10/18/24 04:00 Pulse Ox 97 10/18/24 04:00 O2 Del Method Nasal Cannula 10/18/24 04:00 O2 Flow Rate 1 10/18/24 04:00 10/17/24 10/18/24 10/18/24 22:59 06:59 14:59 Intake Total 2097.5 / 3735.0 240 / 3975.0 Output Total 200 / 650 275 / 925 Balance 1897.5 / 3085.0 -35 / 3050.0 Weight last 48 hrs Weight 210 lb Weight 210 lb Physical Exam GI: OTHER: Abdominal exam is benign minimal tenderness in the epigastrium Data 10/17/24 11:04 10/16/24 17:41 A&P Assessment and plan (1) GI bleed: (2) Acute blood loss anemia: Plan Medical progression from the general surgery standpoint, patient will need to continue 4 weeks of twice a day PPI as well as Carafate 4 times a day and then we will repeat endoscopy to take biopsies. Diet can be advanced to GI soft as tolerated. No contraindications for discharge from the general surgery standpoint at this time Attestations Medical Necessity Statement*: Per medical team Coding Level of Care Code Acute Code for [employer] [employer] [facility] Diagnoses GI bleed K92.2 Acute blood loss anemia D62
[2024-10-18] MEDS: acetaminophen 325 mg Tablet 650 MG PO ×2 (09:19→15:02)
[2024-10-18] MEDS: metoclopramide 5 mg/mL SDV 2 mL IVP (09:20)
[2024-10-18 09:42] LABS: Alanine Aminotransferase 17 U/L (0-41); Albumin Level 3.6 g/dL (3.5-5.2); Alkaline Phosphatase 67 U/L (40-130); Aspartate Amino Transferase 16 U/L (0-40); Blood Urea Nitrogen 37 mg/dL (8-23); Calcium 8.5 mg/dL (8.5-10.5); Carbon Dioxide 14 mmol/L (22-29); Chloride 112 mmol/L (98-107); Creatinine Clr Calc Pharmacy 67.6117; Globulin 2.5 g/dL (1.3-4.6); Glucose 132 mg/dL (65-115); Magnesium 1.8 mg/dL (1.7-2.3); Osmolality Calculated 311 mOsm/kg (285-295); Phosphorus 2.8 mg/dL (2.5-4.5); Sodium 145 mmol/L (136-145); Total Bilirubin 0.2 mg/dL (0.15-1.2); Total Protein 6.1 g/dL (6.6-8.7)
[2024-10-18 09:46] LABS: Anion Gap 23.8 (5-19); Potassium 4.8 mmol/L (3.5-5.1)
--- NOTE | 2024-10-18 09:50 | PC.CHAP ---
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 visit [] Patient/Family/Request visit [] Outpatient visit [] Follow-up visit [] Physician referral [] Code/Alert [x] Routine visit [] Staff referral [] Actively dying [] Patient sleeping [x] Family support [] [] Out of room [] Palliative care [] [] Receiving care in room [] Pre-surgical visit [] Trauma [] Long length of stay [] ICU visit [] Other: Relational/Emotional Strength [] Patient feels connected with others/family/visitors/staff [] Distress [] Loneliness/isolation [] Abandonment Spirituality of Patient [x] Person of Carine [] Attends Congregational of their Carine [x] Believes in Prayer [] Reads Bible or Worship materials [] There are Spiritual issues to be addressed Cashier And Salesperson Interventions [x] Prayer [x] Active listening [] Non-anxious presence [] Spiritual/emotional support [] Crisis/trauma care [] Spiritual counseling [] Bereavement support [] Provided bereavement packet [x] Provided Bible/devotional materials [] Provided toy/stuffed animal, coloring book to patient or family member [] Provided Communion [] Anointing/[place] [] Salvation [x] Completed spiritual assessment [] Other: Impact on Illness or Injury [] Angry [] Fearful [] Anxious [] Often cries [] Exhaustion [] Unable to work [] Unable to attend cheondoism [] Unable to walk/stand [] Unable to read [] Unable to drive [] Unable to eat/drink [] Unable to sleep [] Unable to be with family [] Patient intubated [] Other: Summary Time spent with patient 10 min
[2024-10-18 11:31] LABS: Basophils # 0.1 10^3/uL (0.0-0.1); Basophils % 0.5 %; Eosinophils # 0.1 10^3/uL (0.0-0.8); Eosinophils % 0.5 %; Hematocrit 27.4 % (37-53); Lymphocytes # 1.2 10^3/uL (0.8-4.8); Lymphocytes % 11.2 %; Mean Corpuscular HGB Conc 31.8 g/dL (30-55); Mean Corpuscular Hemoglobin 31.2 pg (27-33); Mean Corpuscular Volume 98.2 fl (82-101); Mean Platelet Volume 9.6 fL (7.4-10.4); Monocytes # 0.6 10^3/uL (0.2-0.9); Monocytes % 5.6 %; Neutrophils # 8.95 10^3/uL (1.8-7.7); Neutrophils % 81.9 %; Nucleated Red Blood Cells % 0 %; Platelet Count 197 10^3/cmm (157-399); Red Blood Count 2.79 10^6/uL (3.85-5.65); Red Cell Distribution Width 12.6 % (12.1-15.1); White Blood Count 10.91 10^3/uL (3.29-11.43)
[2024-10-18 11:36] LABS: Magnesium 1.9 mg/dL (1.7-2.3); Phosphorus 2.5 mg/dL (2.5-4.5)
[2024-10-18 11:49] LABS: Alanine Aminotransferase 13 U/L (0-41); Albumin Level 3.4 g/dL (3.5-5.2); Alkaline Phosphatase 58 U/L (40-130); Anion Gap 12.2 (5-19); Aspartate Amino Transferase 12 U/L (0-40); Blood Urea Nitrogen 22 mg/dL (8-23); Calcium 8.2 mg/dL (8.5-10.5); Carbon Dioxide 24 mmol/L (22-29); Chloride 107 mmol/L (98-107); Creatinine Clr Calc Pharmacy 67.6117; Globulin 1.9 g/dL (1.3-4.6); Glucose 127 mg/dL (65-115); Osmolality Calculated 293 mOsm/kg (285-295); Potassium 4.2 mmol/L (3.5-5.1); Sodium 139 mmol/L (136-145); Total Bilirubin 0.3 mg/dL (0.15-1.2); Total Protein 5.3 g/dL (6.6-8.7)
[2024-10-18 11:52] LABS: Troponin T (5th) Once 17 ng/L (0-15)
[2024-10-18] MEDS: sodium chloride 0.9% 1,000 ML 75 ML IV (13:18)
--- NOTE | 2024-10-18 16:37 | P.PN_ITS ---
Subjective 2 Subjective: Patient had 2 episodes of vomiting this morning. States he threw up his entire breakfast. No hematemesis. No melena. Hemoglobin at 8.7 today. States he feels dizzy as he tries to walk. Overnight he was placed on 1 L/min supplemental O2 no fever or chills. Medications: Reviewed: Yes Vitals/I&O/Wt Last Vital Signs Temp 97.8 F 10/18/24 15:33 Pulse 92 10/18/24 15:33 Resp 17 10/18/24 15:33 BP 117/70 10/18/24 15:33 Pulse Ox 96 10/18/24 15:33 O2 Del Method Nasal Cannula 10/18/24 15:33 O2 Flow Rate 1 10/18/24 04:00 10/18/24 10/18/24 10/18/24 06:59 14:59 22:59 Intake Total 240 / 3975.0 1352.5 / 1352.5 Output Total 275 / 925 800 / 800 150 / 950 Balance -35 / 3050.0 552.5 / 552.5 -150 / 402.5 Weight last 48 hrs Weight 95.254 kg Weight 95.254 kg Physical Exam 2 Narrative: General: No acute distress, AO x3 HEENT: PERRLA, pupils bilaterally equal and reactive, pallors not present Chest: Normal vesicular breath sounds, no added sounds, equal good air entry bilaterally CVS: S1-S2 regular, no murmurs, no tachycardia, no gallops, no rubs Abdomen: Soft, nontender, no organomegaly, bowel sounds present Neuro: No focal deficits, no facial deformity, AO x3, power 5/5 in all limbs Data 10/18/24 11:18 10/18/24 11:18 A&P Assessment and plan (1) GI bleed: (2) Upper gastrointestinal hemorrhage: Plan Upper GI bleed -With black tarry stools, coffee-ground emesis Plan -Keep n.p.o. -IV fluids -Protonix -Carafate -Monitor hemodynamics -Monitor hemoglobin every 4 hours -Transfuse if hemoglobin less than 7 ? Reglan, Zofran, promethazine for nausea vomiting # Full code # SCDs for DVT prophylaxis 10/18/2024 Patient had 2 episodes of vomiting today. Was unable to keep his meals down. As needed Zofran and Reglan have been administered. Additionally as needed promethazine. Aspirin and Plavix have been on hold during course of admission due to noted ulceration. Hemoglobin drifting down to 8.7. No hematemesis or melena today obviously. He also complains of dizziness and overnight was placed on 1 L/min supplemental O2 when his O2 sat dipped to 88% while sleeping. He denies any known history of sleep apnea in the past. Will check chest x-ray, BNP. Additionally obtain echocardiogram. Patient has a known history of coronary artery disease. Had mildly elevated troponins in the range of 20s with a delta of 14 at 2 hours and then a delta of 21 at 6 hours. Suspect that these elevated troponins may be related to demand ischemia. If echocardiogram reveals evidence of CHF, his transfusion threshold would likely need to be higher at 9 instead of 7. Will monitor closely with repeat H&H in the morning. Will check orthostatics additionally given reported dizziness. Attestations 2 Medical Necessity Statement*: Reports dizziness, unable to tolerate p.o. intake just yet. Coding Level of Care Code Acute Code for [facility] Diagnoses GI bleed K92.2 Upper gastrointestinal hemorrhage K92.2
--- NOTE | 2024-10-18 16:38 | USCV_ITS ---
Gianni Maurer Age: 69 Gender: M : 1955 Exam Date: 10/18/2024 16:44 Ordering Phys: Carly Mathias MD Technologist: CT Exam Location: [facility] [place]_ Indication: ef BP: / HR: 92 Rhythm: Sinus Technical Quality: Adequate MEASUREMENTS (Male / Female) Normal Values 2D ECHO LVOT Diameter 2.2 cm LV Ejection Fraction MOD 4C 57.9 % LV Ejection Fraction MOD 2C 67.5 % LV Ejection Fraction 2C AL 67.3 % LA Diameter 4.1 cm RA Systolic Volume 4C AL 40.5 ml RA Systolic Volume 4C MOD 38.8 ml LA Sys Volume AL 47.8 cm cubed LA Sys Volume Index AL 21.3 cm cubed/m squared Aorta at Sinotubular Diameter 2.7 cm M-MODE LA Ao Ratio MM 1.7 AV Cusp Separation MM 2.0 cm DOPPLER AV Peak Velocity 125.0 cm/s LVOT Peak Velocity 94.0 cm/s AV Area Cont Eq vti 3.6 cm squared AV Area Cont Eq pk 2.8 cm squared MV Peak Velocity 95.0 cm/s MV Area PHT 3.4 cm squared Mitral E to A Ratio 0.8 TR Peak Velocity 208.0 cm/s TR Peak Gradient 17.3 mmHg TR Mean Velocity 174.0 cm/s TR Mean Gradient 13.1 mmHg TR Velocity Time Integral 44.0 cm TV Peak E Velocity 69.0 cm/s PV Peak Velocity 98.0 cm/s FINDINGS Left Ventricle Normal left ventricular size and systolic function, EF 60%. No regional wall motion abnormalities. Right Ventricle Possibly normal size and ejection fraction Right Atrium Normal size Left Atrium Normal size Mitral Valve Minimally thickened mitral valve Aortic Valve No gross abnormalities noted Tricuspid Valve No gross abnormalities noted Pulmonic Valve Pulmonic valve not well visualized. Pericardium . Trivial pericardial effusion. Aorta Normal aortic annulus size. IVC Inferior vena cava not visualized. CONCLUSIONS Normal left ventricular size and systolic function, EF 60%. No regional wall motion abnormalities. Minimally thickened mitral valve. Possibly normal chamber sizes. Trivial pericardial effusion. No similar previous studies are available for comparison Dr Little De La O MD [facility] (Electronically Signed) Final Date: 19 October 2024 09:01 S
--- NOTE | 2024-10-18 16:47 | XRR_ITS ---
PROCEDURE INFORMATION: Exam: XR Chest Exam date and time: 10/18/2024 5:49 PM Age: 69 years old Clinical indication: Other: Possible edema; Additional info: Assess for edema TECHNIQUE: Imaging protocol: Radiologic exam of the chest. Views: 1 view. COMPARISON: CT abdomen pelvis w con* [id number] 10/16/2024 6:17 PM FINDINGS: Lungs: Retrocardiac opacities reflecting atelectasis and/or infiltrates versus small layering pleural effusion. Pleural spaces: See Lungs finding. Heart/Mediastinum: Cardiomegaly. Bones/joints: Unremarkable. Other findings: Mild CHF. XR/XR chest 1V portable [id number] IMPRESSION: As above.
[2024-10-18 17:35] LABS: NT Pro B Type Natriuretic Pept 69 pg/mL (0-125)
[2024-10-19] VITALS (7 sets, daily range): BP systolic 123–149; BP diastolic 63–72; PULSE 93–115; RESP 14–16; TEMP 36.7–37; O2SAT 90–94
[2024-10-19] MEDS: ondansetron 2 mg/ML SDV 2 mL 4 MG IVP (03:12)
[2024-10-19] MEDS: sucralfate 1 gm/10 mL Oral Liq UDC PO ×2 (03:12→09:43)
[2024-10-19] MEDS: pantoprazole 40 mg SDV IVP (03:12)
[2024-10-19] MEDS: sodium chloride 0.9% 1,000 ML 50 ML IV (03:28)
[2024-10-19 05:00] LABS: Basophils % 0.5 %; Eosinophils # 0.2 10^3/uL (0.0-0.8); Eosinophils % 2.3 %; Hematocrit 23.2 % (37-53); Lymphocytes # 1.5 10^3/uL (0.8-4.8); Lymphocytes % 18.3 %; Mean Corpuscular HGB Conc 31.5 g/dL (30-55); Mean Corpuscular Hemoglobin 31.6 pg (27-33); Mean Corpuscular Volume 100.4 fl (82-101); Mean Platelet Volume 9.8 fL (7.4-10.4); Monocytes # 0.6 10^3/uL (0.2-0.9); Monocytes % 7.7 %; Neutrophils % 70.8 %; Nucleated Red Blood Cells % 0 %; Platelet Count 185 10^3/cmm (157-399); Red Blood Count 2.31 10^6/uL (3.85-5.65); Red Cell Distribution Width 12.6 % (12.1-15.1); White Blood Count 8.32 10^3/uL (3.29-11.43)
[2024-10-19 05:19] LABS: Troponin T (5th) Once 17 ng/L (0-15)
[2024-10-19 05:35] LABS: Alanine Aminotransferase 12 U/L (0-41); Albumin Level 3.3 g/dL (3.5-5.2); Alkaline Phosphatase 52 U/L (40-130); Anion Gap 13.5 (5-19); Aspartate Amino Transferase 13 U/L (0-40); Blood Urea Nitrogen 13 mg/dL (8-23); Calcium 7.6 mg/dL (8.5-10.5); Carbon Dioxide 23 mmol/L (22-29); Chloride 109 mmol/L (98-107); Creatinine Clr Calc Pharmacy 90.1489; Globulin 1.5 g/dL (1.3-4.6); Glucose 106 mg/dL (65-115); Magnesium 1.7 mg/dL (1.7-2.3); Osmolality Calculated 295 mOsm/kg (285-295); Phosphorus 2.1 mg/dL (2.5-4.5); Potassium 3.5 mmol/L (3.5-5.1); Sodium 142 mmol/L (136-145); Total Bilirubin 0.3 mg/dL (0.15-1.2); Total Protein 4.8 g/dL (6.6-8.7)
[2024-10-19] MEDS: morphine 4 mg/mL SDV 1 mL 2 MG IVP (11:10)
[2024-10-19 12:36] LABS: Hematocrit 26.3 % (37-53)
--- NOTE | 2024-10-19 15:22 | P.DS_ITS ---
Discharge Providers Date of Admission: 10/16/24 20:25 Date of Discharge: October 19, 2024 Attending Provider at Admission: Jamari Holguin MD Attending Provider at Discharge: Carly Mathias MD Diagnoses at Discharge Discharge Diagnosis (1) GI bleed: Status: Acute (2) Upper gastrointestinal hemorrhage: Status: Acute Reason for Visit Reason for Visit: gi bleed Hospital Course Hospital Course Gianni Maurer is a 69 year old male with a past medical history of CAD 4 stents placed, many years ago, is on aspirin and Plavix, history of BPH, who presents to [facility] due to coffee-ground emesis, black tarry stools. He was tachycardic, hemoglobin was at 10.7. He underwent EGD on 10/17/2024 which showed several ulcerations in the lower esophagus, and 1 in the antrum of the stomach. There was also noted to be duodenitis. Bleeding was likely thought to be from an ulcer in the distal esophagus just above the cardia. He received epinephrine injection into the esophageal cardia with control of bleeding. Following the procedure his GI bleeding did resolve. Patient no longer has any hematemesis. He has not yet had a bowel movement in the last 24 hours. Hemoglobin was trended during the course of admission. Presented with a hemoglobin of 10.7, currently stabilized at 8.4 at the time of discharge. Patient did complain of orthostatic hypotension and dizziness for which she received IV fluids. This does not make much difference with regards to improvement in his orthostatics. Troponin series was checked, it was mildly elevated in the 20s without high delta's. He underwent an echocardiogram which showed an LVEF of 60% without any regional wall motion abnormalities. There was no evidence of heart failure. Patient's blood pressure at rest was 140 systolic, with change in position from lying down to standing position he did drop to 120 systolic. He had tachycardia with heart rate going up to 100-1 10 with change in position. His hemoglobin remained at 8.4 , trial of blood transfusion was discussed, however uncertain how much it is contributing to the orthostasis at this number. Patient wishes to hold off on blood transfusion after discussion of risks and benefits at this time. We recommended staying in the hospital until orthostatics improve, however patient is eager to be discharged home today. It is recommended he follow-up with his primary after Kai to recheck her hemoglobin. Would keep his transfusion threshold at 7. If drops any lower blood transfusion would be recommended. Discussed with him that anemia would likely anticipate 2 to 3 months to improve back to his previous baseline. recommend to wear compression stockings at home and avoid sudden change in positions to minimize risk of falls with acute changes in pressure. Recommended to keep ASA and plavix on hold F/up with general surgery in 3-4 weeks for repeat endoscopy and biopsy Physical Exam Narrative: General: No acute distress, AO x3 HEENT: PERRLA, pupils bilaterally equal and reactive, pallors not present Chest: Normal vesicular breath sounds, no added sounds, equal good air entry bilaterally CVS: S1-S2 regular, no murmurs, no tachycardia, no gallops, no rubs Abdomen: Soft, nontender, no organomegaly, bowel sounds present Neuro: No focal deficits, no facial deformity, AO x3, power 5/5 in all limbs Discharge Data Studies Completed and Pending Completed Studies During Hospitalization Category Date Time Status CT abdomen pelvis w con* [id number] Stat Cat Scan 10/16/24 17:42 Completed CXRP [XR chest 1V portable [id number]] Routine Exams 10/18/24 16:47 Completed CV. echo complete* [id number] Routine Ultrasound 10/18/24 16:38 Completed Pending at discharge Category Date Time Status CBC Auto Diff [Complete Blood Count w/Auto] AM LABS Lab 10/20/24 04:00 Ordered CMP [Comprehensive Metabolic Panel] AM LABS Lab 10/20/24 04:00 Ordered Magnesium AM LABS Lab 10/20/24 04:00 Ordered Occult Blood Stool [Immunochemical Fecal OCB] Routine Lab 10/16/24 22:35 Uncollected PHOS [Phosphorus] AM LABS Lab 10/20/24 04:00 Ordered Radiology Impressions Abdomen/Pelvis CT 10/16/24 17:42 IMPRESSION: 1. There is mucosal thickening of the distal esophagus which is dilated and fluid-filled. 2. Acute epiploic appendagitis adjacent to the distal descending colon. 3. Prostate gland indents the base of the bladder consistent with median lobe enlargement. Chest X-Ray 10/18/24 16:47 IMPRESSION: As above. Laboratory Results WBC 8.32 10^3/uL (3.29-11.43) 10/19/24 04:28 Corrected WBC Cancelled 10/18/24 04:35 RBC 2.31 10^6/uL (3.85-5.65) L 10/19/24 04:28 Hgb 8.40 g/dL (11.27-16.99) L 10/19/24 12:26 Hct 26.3 % (37-53) L 10/19/24 12:26 MCV 100.4 fl (82-101) 10/19/24 04:28 MCH 31.6 pg (27-33) 10/19/24 04:28 MCHC 31.5 g/dL (30-55) 10/19/24 04:28 RDW 12.6 % (12.1-15.1) 10/19/24 04:28 Plt Count 185 10^3/cmm (157-399) 10/19/24 04:28 MPV 9.8 fL (7.4-10.4) 10/19/24 04:28 Gran % Cancelled 10/18/24 04:35 Neut % (Auto) 70.8 % 10/19/24 04:28 Lymph % (Auto) 18.3 % 10/19/24 04:28 Bremer % (Auto) 7.7 % 10/19/24 04:28 Eos % (Auto) 2.3 % 10/19/24 04:28 Baso % (Auto) 0.5 % 10/19/24 04:28 Neut # (Auto) 5.90 10^3/uL (1.8-7.7) 10/19/24 04:28 Lymph # (Auto) 1.5 10^3/uL (0.8-4.8) 10/19/24 04:28 Bremer # (Auto) 0.6 10^3/uL (0.2-0.9) 10/19/24 04:28 Eos # (Auto) 0.2 10^3/uL (0.0-0.8) 10/19/24 04:28 Baso # (Auto) 0.0 10^3/uL (0.0-0.1) 10/19/24 04:28 Absolute Gran (auto) Cancelled 10/18/24 04:35 Nucleated RBC % (auto) 0 % 10/19/24 04:28 Nucleated RBCs # 0.0 /100WBC 10/19/24 04:28 PT 13.60 SECONDS (12.1-14.9) 10/16/24 17:41 INR 1.01 (0.8-1.2) 10/16/24 17:41 APTT 22.5 SECONDS (23.9-36.7) L 10/16/24 17:41 Sodium 142 mmol/L (136-145) 10/19/24 04:28 Potassium 3.5 mmol/L (3.5-5.1) 10/19/24 04:28 Chloride 109 mmol/L (98-107) H 10/19/24 04:28 Carbon Dioxide 23 mmol/L (22-29) 10/19/24 04:28 Anion Gap 13.5 (5-19) 10/19/24 04:28 BUN 13 mg/dL (8-23) 10/19/24 04:28 Creatinine 0.9 mg/dL (0.7-1.2) 10/19/24 04:28 GFR Calculation Not Reportable 10/19/24 04:28 Glucose 106 mg/dL (65-115) 10/19/24 04:28 Calculated Osmolality 295 mOsm/kg (285-295) 10/19/24 04:28 Lactic Acid 2.6 mmol/L (0.5-2.2) H 10/17/24 02:02 Lactic Acid (Sepsis) 2.2 mmol/L (0.5-2.2) 10/17/24 05:11 Calcium 7.6 mg/dL (8.5-10.5) L 10/19/24 04:28 Phosphorus 2.1 mg/dL (2.5-4.5) L 10/19/24 04:28 Magnesium 1.7 mg/dL (1.7-2.3) 10/19/24 04:28 Iron 165 ug/dL (59-158) H 10/16/24 17:41 TIBC 322 mcg/dl 10/16/24 17:41 % Saturation 51.2 % (20-50) H 10/16/24 17:41 Unsat Iron Binding 157 ug/dL (112-347) 10/16/24 17:41 Ferritin 42 ng/mL (30-400) 10/16/24 17:41 Total Bilirubin 0.3 mg/dL (0.15-1.2) 10/19/24 04:28 AST 13 U/L (0-40) 10/19/24 04:28 ALT 12 U/L (0-41) 10/19/24 04:28 Alkaline Phosphatase 52 U/L (40-130) 10/19/24 04:28 Troponin T 5th Gen ng/L 17 ng/L (0-15) H 10/19/24 04:28 Troponin T Baseline 8 ng/L (0-15) 10/16/24 17:41 Troponin T 120 Minute 22.27 ng/L (0-15) H 10/16/24 20:39 Delta Troponin T 14.27 ABS# (0-10) H* 10/16/24 20:39 Troponin T Hi Sens 6Hr 29.22 ng/L (0-15) H 10/17/24 02:02 Troponin T Hi Sens 6Hr Delta 21.22 ng/L (0-12) H* 10/17/24 02:02 NT-Pro-B Natriuret Pep 69 pg/mL (0-125) 10/18/24 11:18 Total Protein 4.8 g/dL (6.6-8.7) L 10/19/24 04:28 Albumin 3.3 g/dL (3.5-5.2) L 10/19/24 04:28 Globulin 1.5 g/dL (1.3-4.6) 10/19/24 04:28 Blood Type B Positive 10/16/24 18:37 Rho(D) Type Rh positive 10/16/24 18:37 Antibody Screen Negative 10/16/24 18:37 Vitals Last Vital Signs Temp 98.1 F 10/19/24 07:54 Pulse 93 10/19/24 14:00 Resp 16 10/19/24 11:10 BP 145/72 10/19/24 10:44 Pulse Ox 94 10/19/24 07:54 O2 Del Method Room Air 10/19/24 07:54 O2 Flow Rate 1 10/18/24 04:00 Discharge Plan Discharge Patient Disposition: Home Condition: Fair Prescriptions: New pantoprazole [Protonix] 40 mg tablet,delayed release (DR/EC) 40 mg PO BID 28 Days Qty: 56 1RF sucralfate [Carafate] 1 gram tablet 1 g PO BID 28 Days Qty: 56 0RF ondansetron 4 mg tablet,disintegrating 4 mg PO Q8H PRN (Reason: nausea and vomiting) 10 Days Qty: 30 0RF ferrous sulfate 325 mg (65 mg iron) tablet 325 mg PO DAILY Qty: 30 0RF multivitamin Tablet 1 tab PO DAILY Qty: 30 0RF Continued hydroxyzine HCl 25 mg tablet 25 mg PO 1XD Discontinued clopidogrel 75 mg Tablet 1 mg PO 1XD Discharge Orders: Discharge Order (Routine); Ordered 10/19/24 Ordered By: Carly Mathias Referrals: Rajeev Khalil MD [Physician] - (We have notified your physician's clinic of the need for a follow-up appointment to be scheduled. If you have not heard from them within the next 2 business days, please call them directly. ) Analy Louise [Referring] - 10/21/24 4:25 pm (hospital discharge follow up for GI bleed, repeat Hb check AT [facility]) Discharge Diet: Usual diet Discharge Activity: Resume usual activity Patient Instructions: Sucralfate (By mouth), Ondansetron (By mouth), Pantoprazole (By mouth), Gastrointestinal Bleeding (GEN), GI Post Discharge Instructions w/ Anesthesia, Opioid Safety, Post Anesthesia Care Discharge Attestations Time Spent in Discharge Care*: greater than 30 min Quality Metrics Clinical Quality Measures [ No reported AMI, CVA or VTE this stay] Coding Level of Care Code Acute Code for Chg Fwd Diagnoses GI bleed K92.2 Upper gastrointestinal hemorrhage K92.2
== END 2024-10-19 15:50 | disposition home or self-care (01) | DRG 368 ==
LOC: ER 20:15 → ICU 21:02 → MEDSURG 10-17 23:32
PROVIDERS: Family Medicine; Internal Medicine; Surgery; Admitting Provider Family Medicine; Emergency Provider Emergency Medicine; Visit Provider Student in an Organized Health Care Education/Training Program
PROC: 0DJ08ZZ Inspection of Upper Intestinal Tract, Via Natural or Artificial Opening Endoscopic (ICD-10-PCS; CPT 43235; principal; 2024-10-17 09:00)
DX: K21.01 Gastro-esophageal reflux disease with esophagitis, with bleeding (principal); K25.4 Chronic or unspecified gastric ulcer with hemorrhage; D62 Acute posthemorrhagic anemia; I24.89 Other forms of acute ischemic heart disease; K29.80 Duodenitis without bleeding; K29.70 Gastritis, unspecified, without bleeding; K44.9 Diaphragmatic hernia without obstruction or gangrene; I95.1 Orthostatic hypotension; R00.0 Tachycardia, unspecified; I25.10 Atherosclerotic heart disease of native coronary artery without angina pectoris; Z95.5 Presence of coronary angioplasty implant and graft; Z79.82 Long term (current) use of aspirin; Z79.02 Long term (current) use of antithrombotics/antiplatelets; Z91.014 Allergy to mammalian meats
CPT/HCPCS: 36415; 43236; 43255; 71045; 74177; 80053; 82728; 83540; 83550; 83605; 83735; 83880; 84100; 84484; 85014; 85018; 85025; 85610; 85730; 86850; 86900; 93005; 93306; 94664; 96365; 96372; 96374; 96375; 96376; 99285; J0171; J1630; J2270; J2371; J2405; J2470; J2550; J2704; J2765; J7030

== ENCOUNTER 2024-10-23 17:14 | Observation (INO) | payer MEDICARE, SELFPAY ==
[2024-10-23] VITALS (8 sets, daily range): BP systolic 140–191; BP diastolic 72–85; PULSE 71–103; RESP 12–19; TEMP 36.9; O2SAT 93–99; BMI 28.5; BMI 28.7
[2024-10-23 18:16] LABS: Basophils # 0.1 10^3/uL (0.0-0.1); Basophils % 0.7 %; Eosinophils # 0.4 10^3/uL (0.0-0.8); Eosinophils % 4.9 %; Hematocrit 25.8 % (37-53); Lymphocytes # 1.4 10^3/uL (0.8-4.8); Lymphocytes % 18.4 %; Mean Corpuscular HGB Conc 31.8 g/dL (30-55); Mean Corpuscular Hemoglobin 30.9 pg (27-33); Mean Corpuscular Volume 97.4 fl (82-101); Monocytes # 0.7 10^3/uL (0.2-0.9); Monocytes % 9.3 %; Neutrophils # 4.98 10^3/uL (1.8-7.7); Neutrophils % 66.4 %; Nucleated Red Blood Cells % 0 %; Platelet Count 346 10^3/cmm (157-399); Red Blood Count 2.65 10^6/uL (3.85-5.65)
--- NOTE | 2024-10-23 18:21 | XRR_ITS ---
PROCEDURE INFORMATION: Exam: XR Chest Exam date and time: 10/23/2024 6:34 PM Age: 69 years old Clinical indication: Other: Lightheadedness, palpitations TECHNIQUE: Imaging protocol: Radiologic exam of the chest. Views: 1 view. COMPARISON: CR (CHEST, ) 10/18/2024 5:49 PM FINDINGS: Lungs: Mild central pulmonary vascular congestion without overt edema. Mild bibasilar atelectasis. No focal consolidation. Pleural spaces: Unremarkable. No pleural effusion. No pneumothorax. Heart/Mediastinum: Stable cardiomegaly. Bones/joints: Unremarkable. XR/XR chest 1V portable [id number] IMPRESSION: Cardiomegaly with mild central pulmonary vascular congestion. No edema or consolidative airspace disease.
--- NOTE | 2024-10-23 18:31 | ED_ITS ---
HPI - Extremity Problem 2 General: Chief complaint: Extremity Problem,Nontraumatic Stated complaint: swollen legs Time Seen by Provider: 10/23/24 18:01 History of Present Illness: Patient is a 69-year-old male that presents to the emergency department with palpitations and lower extremity swelling. Patient reports about 2 weeks ago he started developing some epigastric pain nausea vomiting and hematemesis. He was evaluated in the emergency department and found to have a GI bleed was anemic. He was admitted but never transfused. He was treated with IV fluids. His hemoglobin on Carin had continued to decline, it was 7.4 the patient was discharged with instructions to follow-up with primary care the day after . Patient did so and was admitted at a [facility] facility. Again he was not transfused and his hemoglobin. To be stable. Provider at that time was concerned due to his lower extremity edema that appears to wax and wane. It was unclear if the workup has been completed. Patient arrives today with complaints of lower extremity swelling, palpitations, lightheadedness. Patient is anxious, concerned about his GI bleed as well as cardiac concerns. He does have a cardiac history. He had 3 stents done 15 years ago and has been on Plavix since that time. They discontinued his Plavix at the time of the GI bleed. He has not had any cardiac evaluation in recent years. Patient denies shortness of breath or chest pain. He denies fever or chills. Associated symptoms: Deny chest pain, fever(s) or rash Related Data Home Medications Medication Instructions Recorded Confirmed hydroxyzine HCl 25 mg tablet 25 mg PO 1XD 10/17/24 10/17/24 Previous Rx's Medication Instructions Recorded ferrous sulfate 325 mg (65 mg 325 mg PO DAILY #30 tabs 10/19/24 iron) tablet multivitamin 1 tab PO DAILY #30 tabs 10/19/24 ondansetron 4 mg disintegrating 4 mg PO Q8H PRN nausea and 10/19/24 tablet vomiting 10 days #30 tabs pantoprazole 40 mg tablet,delayed 40 mg PO BID 4 weeks #56 tabs 10/19/24 release (Protonix) sucralfate 1 gram tablet (Carafate) 1 g PO BID 4 weeks #56 tabs 10/19/24 Allergies Allergy/AdvReac Type Severity Reaction Status Date / Time doxycycline Allergy Mild ALGY-Rash Verified 10/17/24 10:29 Alpha-Gal Allergy ALGY-Anaphy Verified 10/23/24 17:19 (Qcehhsedi-Fgmee-8,3-Gala laxis Review of Systems 2 General: Reports: 10 or more systems reviewed and unremarkable except in HPI and below Const: Denies: fever(s), chills, change in appetite, change in weight, fatigue or malaise Eyes: Denies: change in vision, eye discomfort, eye discharge or eye redness ENMT: Denies: throat pain, enlarged tonsils, odynophagia, hoarseness, ear or mastoid pain, ear discharge, change in hearing, tinnitus, nasal discharge, nasal congestion, post nasal drip or sinus pain Card: Reports: palpitations, swelling of feet/ankles, lightheadedness and leg pain with exertion; Denies: chest pain, irregular heart rhythm, edema, dyspnea on exertion or orthopnea Resp: Denies: dyspnea, productive cough, non-productive cough, wheezing, stridor or chest congestion GI: Denies: abdominal pain, nausea, vomiting, dysphagia, diarrhea, constipation, bloating, GI cramping or hematochezia : Denies: flank pain, dysuria, urinary frequency, urinary urgency, urinary hesitancy, oliguria or hematuria Musc: Denies: neck pain, back pain, extremity pain, joint pain, joint swelling, joint redness, joint warmth or muscle weakness Skin/Breast: Denies: rash, pruritus, erythema, photosensitivity or new lesions Neuro: Denies: headache(s), numbness in extremities, weakness in extremities, sensory changes, lack of coordination, difficulty walking, frequent falls, dizziness, confusion, Slurred speech present, difficulty communicating thoughts, seizure-like activity or involuntary movements Endo: Denies: polyuria, polydipsia or tired all the time Elpidio/Lymph: Denies: easy bruising or easy bleeding PFSH ED 2 PFSH: Medical History (Updated 10/23/24 @ 22:24 by SONIA Dale) History of CAD (coronary artery disease) Surgical History (Updated 10/16/24 @ 21:27 by Jamari Holguin MD) History of appendectomy History of colonoscopy Family History Mother Alzheimer's dementia Social History (Updated 10/16/24 @ 21:28 by Jamari Holguin MD) Smoking and tobacco/nicotine status: never used tobacco/nicotine Alcohol intake: current Alcohol intake frequency: 0-2 Drinks per Day Substance/Drug Use: never Physical Exam 2 Const: COMMON NORMALS: no acute distress, patient oriented x3 and alert G ENERAL APPEARANCE: cooperative ORIENTATION/CONSCIOUSNESS: Yes awake, Yes oriented to person, Yes oriented to place and Yes oriented to time HENMT: COMMON NORMALS: normocephalic and atraumatic HEAD & SCALP: n ormocephalic and atraumatic FACE & SINUS: normal facial exam MOUTH: Normal oral and palatal mucosa present THROAT: posterior oropharynx normal Eye: COMMON NORMALS: Equal, round and reactive pupils present, EOMs intact bilaterally, conjunctivae normal and no scleral icterus GENERAL EYE: a ppearance normal, both eyes and all related structures ALIGNMENT: Yes alignment normal PERIORBITAL: periorbital findings normal CONJUNCTIVA: Yes conjunctivae normal PUPIL: Yes Equal, round and reactive pupils present Neck/C-Spine: COMMON NORMALS: full ROM GENERAL: Yes normal visual inspection Lymph: LYMPHATIC: no lymphadenopathy noted Chest: COMMONS NORMALS: normal inspection of the chest Breast/axilla inspection: Yes no chest deformity, asymmetry, normal contours, no nodules, masses, tenderness Resp: COMMON NORMALS: normal respiratory effort, No retractions, No use of accessory muscles and clear to auscultation bilaterally EFFORT & INSPECTION: Yes able to speak in complete sentences and Yes symmetric chest movement A USCULTATION: clear to auscultation bilaterally Cardio: COMMON NORMALS: regular rate, regular rhythm and Peripheral pulses 2+ throughout RATE: regular rate RHYTHM: regular rhythm PERIPHERAL PULSES: Peripheral pulses 2+ throughout OTHER: Lower extremity edema. Not currently pitting. GI: COMMON NORMALS: Normal to inspection, nondistended, normoactive bowel sounds present, Soft to palpation, non-tender and No hepatosplenomegaly present INSPECTION: Yes normal to inspection AUSCULTATION: Yes normoactive bowel sounds PALPATION: Yes Soft to palpation and Yes No hepatosplenomegaly present RECTAL EXAM: Yes deferred Extremity: COMMON NORMALS: normal to inspection GENERAL: Yes normal exam except as noted Neuro: COMMON NORMALS: patient oriented x3 SENSORIUM/ORIENTATION: Yes alert, Yes oriented to person, Yes oriented to place and Yes oriented to time CRANIAL NERVES: Yes CN normal except as noted Psych: COMMON NORMALS: mental status grossly normal, Normal thought process present, cooperative, activity/motor behavior normal, denies homicidal ideation and denies suicidal ideation THOUGHT PROCESS: Normal thought process present Skin: COMMON NORMALS: no rashes or lesions noted, no wounds and turgor normal GENERAL SKIN EXAM: no rashes or lesions noted and turgor normal Course 2 Vital Signs: Vital signs: Vital Signs Temperature 98.4 F 10/23/24 17:15 Pulse Rate 79 10/23/24 21:57 Respiratory Rate 15 10/23/24 21:57 Blood Pressure 149/80 10/23/24 21:57 Pulse Oximetry 96 10/23/24 21:57 Oxygen Delivery Me thod Room Air 10/23/24 21:57 MDM - Extremity (Nontraumatic) Medical Decision Making Patient was evaluated today in the emergency department for lightheadedness, lower extremity swelling. Patient has recent history of hospitalization for GI bleed. Patient was last evaluated on 10/19/2024 patient at that time had a hemoglobin of 7.4 but felt that he could be managed at home. He was discharged with close follow-up. He ultimately has not required any additional fluids or blood but today developed worsening edema in his lower extremities and lightheadedness. Here in the emergency department he had a series of orthostatic vital signs done which shows he is orthostatic. His heart rate drops from the 70s to 120s when he goes from sitting to standing. Blood pressure remained stable. Patient was treated with fluids during his prior hospitalization. He denies any chest pain or shortness of breath but he has had increased swelling in the lower extremities. I did obtain a chest x-ray which reveals cardiomegaly with mild central pulmonary vascular congestion. He did have an echo during his last admission which showed an EF of 60. Patient has a BNP that is 280 and initial troponin of 18. 2-hour delta is -2. Hemoglobin today is 8.2 so does not appear that he is bleeding any further assess increased since his last admission. I discussed the case with Dr. Moody and I feel that the patient is symptomatic. I talked with the hospitalist and she is agreeable for admission, management and transfusion. Lab Data 10/23/24 18:08 10/23/24 18:08 Radiology Impressions Chest X-Ray 10/23/24 18:21 IMPRESSION: Cardiomegaly with mild central pulmonary vascular congestion. No edema or consolidative airspace disease. Laboratory Results WBC 7.50 10^3/uL (3.29-11.43) 10/23/24 18:08 RBC 2.65 10^6/uL (3.85-5.65) L 10/23/24 18:08 Hgb 8.20 g/dL (11.27-16.99) L 10/23/24 18:08 Hct 25.8 % (37-53) L 10/23/24 18:08 MCV 97.4 fl (82-101) 10/23/24 18:08 MCH 30.9 pg (27-33) 10/23/24 18:08 MCHC 31.8 g/dL (30-55) 10/23/24 18:08 RDW 13.0 % (12.1-15.1) 10/23/24 18:08 Plt Count 346 10^3/cmm (157-399) 10/23/24 18:08 MPV 9.0 fL (7.4-10.4) 10/23/24 18:08 Neut % (Auto) 66.4 % 10/23/24 18:08 Lymph % (Auto) 18.4 % 10/23/24 18:08 Wright % (Auto) 9.3 % 10/23/24 18:08 Eos % (Auto) 4.9 % 10/23/24 18:08 Baso % (Auto) 0.7 % 10/23/24 18:08 Neut # (Auto) 4.98 10^3/uL (1.8-7.7) 10/23/24 18:08 Lymph # (Auto) 1.4 10^3/uL (0.8-4.8) 10/23/24 18:08 Wright # (Auto) 0.7 10^3/uL (0.2-0.9) 10/23/24 18:08 Eos # (Auto) 0.4 10^3/uL (0.0-0.8) 10/23/24 18:08 Baso # (Auto) 0.1 10^3/uL (0.0-0.1) 10/23/24 18:08 Nucleated RBC % (auto) 0 % 10/23/24 18:08 Nucleated RBCs # 0.0 /100WBC 10/23/24 18:08 Sodium 145 mmol/L (136-145) 10/23/24 18:08 Potassium 3.7 mmol/L (3.5-5.1) 10/23/24 18:08 Chloride 109 mmol/L (98-107) H 10/23/24 18:08 Carbon Dioxide 30 mmol/L (22-29) H 10/23/24 18:08 Anion Gap 9.7 (5-19) 10/23/24 18:08 BUN 6 mg/dL (8-23) L 10/23/24 18:08 Creatinine 1.0 mg/dL (0.7-1.2) 10/23/24 18:08 GFR Calculation Not Reportable 10/23/24 18:08 Glucose 110 mg/dL (65-115) 10/23/24 18:08 Calculated Osmolality 298 mOsm/kg (285-295) H 10/23/24 18:08 Calcium 9.0 mg/dL (8.5-10.5) 10/23/24 18:08 Phosphorus 2.5 mg/dL (2.5-4.5) 10/23/24 18:08 Magnesium 1.8 mg/dL (1.7-2.3) 10/23/24 18:08 Total Bilirubin 0.2 mg/dL (0.15-1.2) 10/23/24 18:08 AST 15 U/L (0-40) 10/23/24 18:08 ALT 14 U/L (0-41) 10/23/24 18:08 Alkaline Phosphatase 71 U/L (40-130) 10/23/24 18:08 Troponin T Baseline 18 ng/L (0-15) H 10/23/24 18:08 Troponin T 120 Minute 15.90 ng/L (0-15) H 10/23/24 20:59 Delta Troponin T -2.10 ABS# (0-10) L 10/23/24 20:59 NT-Pro-B Natriuret Pep 280 pg/mL (0-125) H 10/23/24 18:08 Total Protein 6.2 g/dL (6.6-8.7) L 10/23/24 18:08 Albumin 3.7 g/dL (3.5-5.2) 10/23/24 18:08 Globulin 2.5 g/dL (1.3-4.6) 10/23/24 18:08 All radiology interpretation(s) finalized by discharge Discharge Plan Discharge Patient Disposition: Admitted As Inpatient Clinical Impression: Orthostatic lightheadedness, Upper gastrointestinal hemorrhage, Acute blood loss anemia Condition: Stable Coding Level of Care Code ED [employer] Manager for Pamela Burgess
[2024-10-23 18:44] LABS: Alanine Aminotransferase 14 U/L (0-41); Albumin Level 3.7 g/dL (3.5-5.2); Alkaline Phosphatase 71 U/L (40-130); Anion Gap 9.7 (5-19); Aspartate Amino Transferase 15 U/L (0-40); Blood Urea Nitrogen 6 mg/dL (8-23); Carbon Dioxide 30 mmol/L (22-29); Chloride 109 mmol/L (98-107); Globulin 2.5 g/dL (1.3-4.6); Glucose 110 mg/dL (65-115); NT Pro B Type Natriuretic Pept 280 pg/mL (0-125); Osmolality Calculated 298 mOsm/kg (285-295); Potassium 3.7 mmol/L (3.5-5.1); Sodium 145 mmol/L (136-145); Total Bilirubin 0.2 mg/dL (0.15-1.2); Total Protein 6.2 g/dL (6.6-8.7)
[2024-10-23 18:58] LABS: Troponin(5th) Baseline 18 ng/L (0-15)
--- NOTE | 2024-10-23 19:52 | ECG_ITS ---
[employer] Test Date: 2024-10-23 Pat Name: Gianni Maurer Department: Room: Gender: Male Mix Maker: : 1955 Requested By: Zeke Alvarado Order Number: [id number] Dhruv MD: Terrence Browne M.D. Measurements Intervals [place] Rate: 67 P: 79 RI: 158 QRS: 56 QRSD: 92 T: 62 QT: 380 QTc: 402 Interpretive Statements SINUS RHYTHM Compared to ECG 10/16/2024 19:48:10 Sinus tachycardia no longer present ST (T wave) deviation no longer present Electronically Signed On 10-24-2024 20:06:40 [employer] by Terrence Browne M.D. [email or web address]
--- NOTE | 2024-10-23 21:42 | PM.HP ---
Providers/Chief Complaint Chief Complaint: swollen legs History of Present Illness Gianni Maurer is a 69yo man w/ GERD, CAD s/p 4 stents placed from placed from approx 2009 t0 2011 on Aspirin and Plavix since then, who re-presents to [facility] on 10/23/2024 w/ complaints of dizziness, nausea, and palpitations. He was hospitalized from 10/16 to 10/19/2024 Acute UGI bleed. He is s/p an EGD on 10/17/2024 by Gen Surgery that showed Esophagitis as well as Esophageal ulcers w/ bleeding stigmata in the lower 1/3 of the esophagus, gastric ulcers in the gastric antrum w/ gastritis, and duodenitis. Biopsies were not taken given the patient was on anticoagulation. Possibly bleeding ulcers were controlled with epinephrine injection. Per Gen Surg, if patient re-bled, he was to be transferred for a higher level of care with GI and possible IR intervention. Post-procedure, the patient complained of dizziness, and there was concern that he was positive in his orthostatics. Nevertheless, on his own request, he was discharged on 10/19 to spend Kia with his family and urged to follow-up with his PCP on 10/21 for Hgb reevaluation and with general surgery in clinic in 3 to 4 weeks. His aspirin and Plavix were held on discharge. The patient tells me today, that he saw his PCP on 10/21/2024 and saw that his Hgb was 6.4, so he was referred to [facility] where labs were done. Per patient, he was not transfused, b/c he was told that he did not need transfusion. He did not get any fluids. When he returned home on 10/21, he noticed that he was dizzy with standing, and he would notice his heart simultaneously race and his heart pound in his head. On the morning of 10/23, he felt nauseous and noticed that his hand and legs were swollen, such that he has difficulty moving his feet and curling his fingers. Additionally, he felt dizzy if tried to get up, so he called his and asked her to bring him to the ED. He feels that the swelling in his peripheral extremities are due to the fluids that he received during his 10/16- hospitalization. He denies fevers, but he endorses chills that progresses to rigors and then diaphoresis. He endorses palpitations, lightheadedness, SOB, wheezing, cough, but denies syncope, abdominal pain vomiting, diarrhea, constipation. He has had a BM since he returned home, and he reports that he no longer has melenic stools or hematochezia. In the ED, Orthostatics were done and are as follows. HR in lying, sitting and standing positions were 75, 78, & 103. BP in lying sitting and standing positions were 145/78mmHg, 140/73mmHg, and 159/72mmHg. His Hgb was 8.2 and his BNP was 268.. His EKG showed NSR with no ST changes. His CXR showed cardiomegaly with mild central pulmonary vascular congestion. He was admitted for further management. After interviewing the patient, while in the nursing station documenting, the patient became tachycardic to I45, and the alarms went off. The nurses ran into the room, to evaluate him and get a STAT EKG per my request, and he told them that he had just gotten up to urinate. When he sat down, his HR normalized to 85 and his EKG went back into NSR w/ no ST changes. Review of Systems Const: Reports: chills, change in appetite (poor appetite), fatigue and diaphoresis Eyes: Denies: change in vision Card: Reports: palpitations, swelling of feet/ankles and lightheadedness; Denies: chest pain or syncope Resp: Reports: other (no cough); Denies: dyspnea or wheezing GI: Reports: nausea; Denies: abdominal pain, vomiting, diarrhea, constipation, hematochezia or melena : Reports: urinary dribbling; Denies: difficulty urinating, dysuria, urinary frequency, urinary urgency or hematuria Musc: Reports: extremity pain (leg pain ) Skin/Breast: Denies: rash or new lesions Neuro: Reports: headache(s) and dizziness Psych: Denies: anxiety, depression, suicidal ideation or homicidal ideation Endo: Denies: cold intolerance or heat intolerance Elpidio/Lymph: Reports: easy bruising (due to plavix) and easy bleeding (due to plavix) All/Imm: Reports: food intolerance (alpha gal syndrome) Medications/Allergies Home Medications Medication Instructions Recorded Confirmed Last Taken Type hydroxyzine HCl 25 mg tablet 25 mg PO 1XD 10/17/24 10/23/24 10/15/24 21:00 History multivitamin 1 tab PO DAILY #30 tabs 10/19/24 10/23/24 Unknown Rx ondansetron 4 mg disintegrating 4 mg PO Q8H PRN nausea and 10/19/24 10/23/24 Unknown Rx tablet vomiting 10 days #30 tabs pantoprazole 40 mg tablet,delayed 40 mg PO BID 4 weeks #56 tabs 10/19/24 10/23/24 Unknown Rx release (Protonix) sucralfate 1 gram tablet (Carafate) 1 g PO BID 4 weeks #56 tabs 10/19/24 10/23/24 Unknown Rx Allergies Allergy/AdvReac Type Severity Reaction Status Date / Time doxycycline Allergy Mild ALGY-Rash Verified 10/17/24 10:29 Alpha-Gal Allergy ALGY-Anaphy Verified 10/23/24 17:19 (Tgwnaelsb-Fgvbf-0,3-Gala laxis PFSH Acute PFSH: Medical History History of CAD (coronary artery disease) Surgical History History of appendectomy History of colonoscopy Family History Mother Alzheimer's dementia Social History (Updated 10/24/24 @ 02:20 by Mindy Whitaker MD) Smoking and tobacco/nicotine status: former use of tobacco/nicotine Alcohol intake: current Alcohol intake frequency: 0-2 Drinks per Day Substance/Drug Use: never Vitals/I&O/Wt Last Vital Signs Temp 98.4 F 10/23/24 17:15 Pulse 88 10/23/24 21:01 Resp 12 10/23/24 21:01 BP 191/84 10/23/24 21:01 Pulse Ox 93 10/23/24 21:01 O2 Del Method Room Air 10/23/24 21:01 10/23/24 10/23/24 10/23/24 06:59 14:59 22:59 Intake Total 0 / 0 Balance 0 / 0 Weight last 48 hrs Weight 95.254 kg Physical Exam Const: GENERAL APPEARANCE: cooperative and comfortable ORIENTATION/CONSCIOUSNESS: Yes awake, Yes oriented to person, Yes oriented to place and Yes oriented to time HENMT: HEAD & SCALP: normocephalic and atraumatic NOSE: Normal external nose present EXTERNAL EAR: Yes external ears normal MOUTH: Normal oral and palatal mucosa present THROAT: posterior oropharynx normal Eye: OTHER: pale conjunctiva, PEERL, EOMI Neck/C-Spine: GENERAL: Yes normal visual inspection and Yes trachea midline THYROID: Thyroid normal CAROTIDS: No bruit Lymph: OTHER: no cervical or supraclavicular LAD Resp: OTHER: CTAB, no w/r/r Cardio: OTHER: RRR, no m/r/g or clicks GI: OTHER: BS+, NT, ND, no guarding, no rigidity, no rebound tenderness, no hepatosplenomegaly. Extremity: NARRATIVE EXTREMITY EXAM: 2+ pitting edema to the mid tibia b/l. No cyanosis or clubbing. Neuro: CRANIAL NERVES: Yes CN normal except as noted SPEECH: speech normal SENSORY EXAM: No sensory level loss detected MOTOR EXAM: 5/5 motor strength present throughout Psych: ATTITUDE: Yes calm and Yes engaged ACTIVITY/MOTOR BEHAVIOR: Yes appropriate eye contact SPEECH: Yes normal speech MOOD & AFFECT: Yes euthymic mood THOUGHT PROCESS: Normal thought process present THOUGHT CONTENT: Yes Normal thought content present ATTENTION/CONCENTRATION: Yes attention grossly intact MEMORY/COGNITION: Yes memory grossly intact Skin: GENERAL SKIN EXAM: no rashes or lesions noted Data 10/23/24 18:08 10/23/24 18:08 A&P Assessment and plan (1) Orthostatic lightheadedness: (2) Dizziness: Plan Gianni Maurer is a 69yo man w/ GERD, CAD s/p 4 stents placed from placed from approx 2009 t0 2011 on Aspirin and Plavix since then, who re-presents to [facility] on 10/23/2024 w/ complaints of dizziness, nausea, and palpitations. #Dizziness: This is likely as a result of his blood loss, and he has had several instances where he has required multiple blood draw since hospitalization on 10/16 to discharge. - Will transfuse 1unit prbc and give a dose of Lasix 40mg IVP x 1 - Will also order a COVID/RSV/Influenza A/B panel, especially because his BNP is 268 but his CXR is concerning for vascular congestion. -This might be more Vascepa, but consider an MRI of the brain if the dizziness does not improve. #Peripheral edema - Lasix 40mg IVP x 1 - F/u UA #Acute blood loss anemia #S/p EGD on 10/17 w/ Gastric & Esophageal ulcers -Continue po Pantoprazole, Carafate q6h, #Sinus tachycardia: Continue to Monitor. #CAD s/p 4 stents in [place]. - Hold plavix. 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 He can have dairy #Possible BPH: Complains of LUTS symptoms such as urinary dribbling. - F/u UA. - Consider f/u w/ Urology Code Status: Full code DVT prophylaxis: lovenox Dispo: He really wants to go home today. He is worried about the financial implications of his admission, such that per ED nurse practitioner, the patient did not even want to be admitted. Attestations Medical Necessity Statement*: At this time, we will admit this patient for observation, to transfuse him and see if his symptoms improve, and if further hospitalization nights are needed, we will convert him to inpatient. Coding Level of Care Code Acute Code for Chg Fwd Diagnoses Orthostatic lightheadedness R42 Dizziness R42
[2024-10-23 22:27] LABS: Magnesium 1.8 mg/dL (1.7-2.3); Phosphorus 2.5 mg/dL (2.5-4.5)
[2024-10-24] VITALS (9 sets, daily range): BP systolic 128–171; BP diastolic 69–82; PULSE 75–110; RESP 17–18; TEMP 36.6–37.1; O2SAT 93–96
--- NOTE | 2024-10-24 00:24 | ECG_ITS ---
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 Measurements Intervals [place] Rate: 70 P: 66 [place]: 162 QRS: 30 QRSD: 93 T: 41 QT: 364 QTc: 393 Interpretive Statements SINUS RHYTHM WITH SINUS ARRHYTHMIA Compared to ECG 10/23/2024 19:52:13 No significant changes Electronically Signed On 10-24-2024 20:15:07 FORMULA BOTTLER by Terrence Browne M.D. [email or web address]
[2024-10-24 01:09] LABS: Troponin 5 6HR 17.42 ng/L (0-15)
[2024-10-24 01:32] LABS: Troponin 5 6HR Delta -0.58 ng/L (0-12)
[2024-10-24 02:01] LABS: Ferritin 22 ng/mL (30-400); Iron 13 ug/dL (59-158); Percent Saturation 3.9 % (20-50); Total Iron Binding Capacity 327 mcg/dl; Unsaturated Iron Binding 314 ug/dL (112-347)
[2024-10-24 02:16] LABS: Folate Level 15.4 ng/mL (4.5-32.2); Vitamin B12 763 pg/mL (232-1245)
--- NOTE | 2024-10-24 02:34 | ECG_ITS ---
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 Measurements Intervals [place] Rate: 86 P: 74 [place]: 161 QRS: 30 QRSD: 92 T: 43 QT: 335 QTc: 402 Interpretive Statements SINUS RHYTHM NONSPECIFIC ST & T-WAVE ABNORMALITY Compared to ECG 10/24/2024 00:24:32 T-wave abnormality now present Sinus arrhythmia no longer present Electronically Signed On 10-24-2024 20:06:13 IT MANAGER by eTrrence Browne M.D. [id number]
[2024-10-24 03:02] LABS: Bilirubin Urine Negative (Negative); Blood Urine Negative (Negative); Glucose Urine UA Negative (Normal); Ketones Urine Negative (Negative); Leukocyte Esterase Urine Negative (Negative); Nitrate Urine Negative (Negative); Protein Urine Negative (Negative); Specific Gravity, Urine 1.012 (1.005-1.030); Urine Appearance Clear (CLEAR); Urine Color Yellow (Yellow); Urobilinogen Urine 0.2 mg/dL (Negative)
[2024-10-24 03:07] LABS: Add Urine Microscopic? YES; Bacteria Urine None Seen /hpf; Hyaline Casts Urine 0-4 /lpf; RBC Urine 0-2 /hpf (0-2); Squamous Epithelial Cell Urine 0-5 /hpf (0-5); WBC Urine 0-5 /hpf (0-5)
[2024-10-24 04:05] LABS: Covid PCR NEGATIVE (Negative); Influenza A NEGATIVE (Negative); Influenza B NEGATIVE (Negative); Respiratory Syncytial Virus Ce NEGATIVE (Negative)
[2024-10-24] MEDS: acetaminophen 325 mg Tablet 650 MG PO ×2 (04:39→11:38)
[2024-10-24] MEDS: FUROsemide 10 mg/mL SDV 4mL 40 MG IVP (04:39)
[2024-10-24] MEDS: pantoprazole DR 40 mg Tablet PO (05:52)
[2024-10-24 05:55] LABS: Basophils % 0.4 %; Eosinophils # 0.4 10^3/uL (0.0-0.8); Eosinophils % 4.1 %; Hematocrit 26.7 % (37-53); Lymphocytes # 1.8 10^3/uL (0.8-4.8); Lymphocytes % 20.2 %; Mean Corpuscular HGB Conc 31.8 g/dL (30-55); Mean Corpuscular Volume 94.3 fl (82-101); Mean Platelet Volume 9.2 fL (7.4-10.4); Monocytes # 0.7 10^3/uL (0.2-0.9); Monocytes % 7.2 %; Neutrophils # 6.15 10^3/uL (1.8-7.7); Neutrophils % 67.7 %; Nucleated Red Blood Cells % 0 %; Platelet Count 372 10^3/cmm (157-399); Red Blood Count 2.83 10^6/uL (3.85-5.65); Red Cell Distribution Width 12.8 % (12.1-15.1); White Blood Count 9.09 10^3/uL (3.29-11.43)
[2024-10-24 06:01] LABS: INR 0.94 (0.8-1.2)
[2024-10-24 06:03] LABS: Partial Thromboplastin Time 26.7 SECONDS (23.9-36.7)
[2024-10-24 06:12] LABS: Alanine Aminotransferase 13 U/L (0-41); Albumin Level 3.9 g/dL (3.5-5.2); Alkaline Phosphatase 75 U/L (40-130); Anion Gap 12.4 (5-19); Aspartate Amino Transferase 16 U/L (0-40); Blood Urea Nitrogen 6 mg/dL (8-23); Calcium 9.2 mg/dL (8.5-10.5); Carbon Dioxide 27 mmol/L (22-29); Chloride 107 mmol/L (98-107); Creatinine Clr Calc Pharmacy 81.3951; Globulin 2.7 g/dL (1.3-4.6); Glucose 110 mg/dL (65-115); Magnesium 1.9 mg/dL (1.7-2.3); Osmolality Calculated 294 mOsm/kg (285-295); Phosphorus 2.8 mg/dL (2.5-4.5); Potassium 3.4 mmol/L (3.5-5.1); Sodium 143 mmol/L (136-145); Total Bilirubin 0.5 mg/dL (0.15-1.2); Total Protein 6.6 g/dL (6.6-8.7)
[2024-10-24 06:23] LABS: Free T4 Free Thyroxine 1.48 ng/dL (0.82-1.77); Thyroid Stimulating Hormone 2.46 uIU/mL (0.27-4.20)
[2024-10-24] MEDS: sucralfate 1 gm Tablet PO ×2 (09:53→13:07)
--- NOTE | 2024-10-24 16:48 | PM.DCS ---
Discharge Providers Date of Admission: 10/23/24 22:25 Date of Discharge: October 24, 2024 Attending Provider at Admission: Mindy Whitaker MD Attending Provider at Discharge: James Eid MD Diagnoses at Discharge Discharge Diagnosis (1) Orthostatic lightheadedness: Status: Acute (2) Dizziness: Status: Acute Reason for Visit Reason for Visit: swollen legs Brief History: History as per HPI: Gianni Maurer is a 69yo man w/ GERD, CAD s/p 4 stents placed from placed from approx 2009 t0 2011 on Aspirin and Plavix since then, who re-presents to [facility] on 10/23/2024 w/ complaints of dizziness, nausea, and palpitations. He was hospitalized from 10/16 to 10/19/2024 Acute UGI bleed. He is s/p an EGD on 10/17/2024 by Gen Surgery that showed Esophagitis as well as Esophageal ulcers w/ bleeding stigmata in the lower 1/3 of the esophagus, gastric ulcers in the gastric antrum w/ gastritis, and duodenitis. Biopsies were not taken given the patient was on anticoagulation. Possibly bleeding ulcers were controlled with epinephrine injection. Per Gen Surg, if patient re-bled, he was to be transferred for a higher level of care with GI and possible IR intervention. Post-procedure, the patient complained of dizziness, and there was concern that he was positive in his orthostatics. Nevertheless, on his own request, he was discharged on 10/19 to spend [place] with his family and urged to follow-up with his PCP on 10/21 for Hgb reevaluation and with general surgery in clinic in 3 to 4 weeks. His aspirin and Plavix were held on discharge. The patient tells me today, that he saw his PCP on 10/21/2024 and saw that his Hgb was 6.4, so he was referred to [facility] where labs were done. Per patient, he was not transfused, b/c he was told that he did not need transfusion. He did not get any fluids. When he returned home on 10/21, he noticed that he was dizzy with standing, and he would notice his heart simultaneously race and his heart pound in his head. On the morning of 10/23, he felt nauseous and noticed that his hand and legs were swollen, such that he has difficulty moving his feet and curling his fingers. Additionally, he felt dizzy if tried to get up, so he called his and asked her to bring him to the ED. He feels that the swelling in his peripheral extremities are due to the fluids that he received during his 10/16- hospitalization. He denies fevers, but he endorses chills that progresses to rigors and then diaphoresis. He endorses palpitations, lightheadedness, SOB, wheezing, cough, but denies syncope, abdominal pain vomiting, diarrhea, constipation. He has had a BM since he returned home, and he reports that he no longer has melenic stools or hematochezia. In the ED, Orthostatics were done and are as follows. HR in lying, sitting and standing positions were 75, 78, & 103. BP in lying sitting and standing positions were 145/78mmHg, 140/73mmHg, and 159/72mmHg. His Hgb was 8.2 and his BNP was 268.. His EKG showed NSR with no ST changes. His CXR showed cardiomegaly with mild central pulmonary vascular congestion. He was admitted for further management. After interviewing the patient, while in the nursing station documenting, the patient became tachycardic to I45, and the alarms went off. The nurses ran into the room, to evaluate him and get a STAT EKG per my request, and he told them that he had just gotten up to urinate. When he sat down, his HR normalized to 85 and his EKG went back into NSR w/ no ST changes. Hospital Course Hospital Course Patient was admitted to the hospital further evaluation and management of dizziness. His hemoglobin was stable given recent admission for GI bleed. Patient's orthostatic blood pressures were stable. He did have 1 episode of tachycardia with ambulation. During hospitalization patient complained of right-sided heaviness which has been ongoing for last 2 to 3 days. He feels a foreign body sensation in the ER on and off. Patient with dizziness continue to resolve gradually. Possibility of posterior circulation stroke was discussed in detail with the patient. We discussed of a possible MRI though that would not change to treatment given his recent GI bleed for which aspirin and Plavix has been withheld for now asked 2 to 3 weeks. Patient stated as it would not change any treatment plan and he is anyways to restart his up to dual antiplatelet therapy and few weeks he would rather not get the MRI. He has been discharged in hemodynamically stable condition on meclizine as needed, metoprolol 25 mg twice daily with advised to follow-up with ENT as an outpatient. Physical Exam Const: GENERAL APPEARANCE: cooperative and comfortable ORIENTATION/CONSCIOUSNESS: Yes awake, Yes oriented to person, Yes oriented to place and Yes oriented to time HENMT: COMMON NORMALS: normocephalic, atraumatic, external ears normal and Normal external nose present HEAD & SCALP: normocephalic and atraumatic NOSE: Normal external nose present EXTERNAL EAR: Yes external ears normal MOUTH: Normal oral and palatal mucosa present THROAT: posterior oropharynx normal Eye: OTHER: pale conjunctiva, PEERL, EOMI Neck/C-Spine: COMMON NORMALS: Thyroid normal GENERAL: Yes normal visual inspection and Yes trachea midline THYROID: Thyroid normal CAROTIDS: No bruit Lymph: OTHER: no cervical or supraclavicular LAD Resp: OTHER: CTAB, no w/r/r Cardio: OTHER: RRR, no m/r/g or clicks GI: OTHER: BS+, NT, ND, no guarding, no rigidity, no rebound tenderness, no hepatosplenomegaly. Extremity: NARRATIVE EXTREMITY EXAM: 2+ pitting edema to the mid tibia b/l. No cyanosis or clubbing. Neuro: SENSORIUM/ORIENTATION: Yes oriented to person, Yes oriented to place and Yes oriented to time CRANIAL NERVES: Yes CN normal except as noted SPEECH: speech normal SENSORY EXAM: No sensory level loss detected MOTOR EXAM: 5/5 motor strength present throughout Psych: COMMON NORMALS: Normal thought process present and speech normal ATTITUDE: Yes calm and Yes engaged ACTIVITY/MOTOR BEHAVIOR: Yes appropriate eye contact SPEECH: Yes normal speech MOOD & AFFECT: Yes euthymic mood THOUGHT PROCESS: Normal thought process present THOUGHT CONTENT: Yes Normal thought content present ATTENTION/CONCENTRATION: Yes attention grossly intact MEMORY/COGNITION: Yes memory grossly intact Skin: COMMON NORMALS: no rashes or lesions noted GENERAL SKIN EXAM: no rashes or lesions noted Discharge Data Studies Completed and Pending Completed Studies During Hospitalization Category Date Time Status CXRP [XR chest 1V portable 46121] Stat Exams 10/23/24 18:21 Completed Pending at discharge Category Date Time Status CBC Auto Diff [Complete Blood Count w/Auto] AM LABS Lab 10/25/24 04:00 Ordered CBC Auto Diff [Complete Blood Count w/Auto] AM LABS Lab 10/26/24 04:00 Ordered CMP [Comprehensive Metabolic Panel] AM LABS Lab 10/25/24 04:00 Ordered CMP [Comprehensive Metabolic Panel] AM LABS Lab 10/26/24 04:00 Ordered Magnesium AM LABS Lab 10/25/24 04:00 Ordered Magnesium AM LABS Lab 10/26/24 04:00 Ordered PHOS [Phosphorus] AM LABS Lab 10/25/24 04:00 Ordered PHOS [Phosphorus] AM LABS Lab 10/26/24 04:00 Ordered Radiology Impressions Chest X-Ray 10/23/24 18:21 IMPRESSION: Cardiomegaly with mild central pulmonary vascular congestion. No edema or consolidative airspace disease. Laboratory Results WBC 9.09 10^3/uL (3.29-11.43) 10/24/24 05:42 RBC 2.83 10^6/uL (3.85-5.65) L 10/24/24 05:42 Hgb 8.50 g/dL (11.27-16.99) L 10/24/24 05:42 Hct 26.7 % (37-53) L 10/24/24 05:42 MCV 94.3 fl (82-101) 10/24/24 05:42 MCH 30.0 pg (27-33) 10/24/24 05:42 MCHC 31.8 g/dL (30-55) 10/24/24 05:42 RDW 12.8 % (12.1-15.1) 10/24/24 05:42 Plt Count 372 10^3/cmm (157-399) 10/24/24 05:42 MPV 9.2 fL (7.4-10.4) 10/24/24 05:42 Neut % (Auto) 67.7 % 10/24/24 05:42 Lymph % (Auto) 20.2 % 10/24/24 05:42 Story % (Auto) 7.2 % 10/24/24 05:42 Eos % (Auto) 4.1 % 10/24/24 05:42 Baso % (Auto) 0.4 % 10/24/24 05:42 Neut # (Auto) 6.15 10^3/uL (1.8-7.7) 10/24/24 05:42 Lymph # (Auto) 1.8 10^3/uL (0.8-4.8) 10/24/24 05:42 Story # (Auto) 0.7 10^3/uL (0.2-0.9) 10/24/24 05:42 Eos # (Auto) 0.4 10^3/uL (0.0-0.8) 10/24/24 05:42 Baso # (Auto) 0.0 10^3/uL (0.0-0.1) 10/24/24 05:42 Nucleated RBC % (auto) 0 % 10/24/24 05:42 Nucleated RBCs # 0.0 /100WBC 10/24/24 05:42 PT 12.80 SECONDS (12.1-14.9) 10/24/24 05:42 INR 0.94 (0.8-1.2) 10/24/24 05:42 APTT 26.7 SECONDS (23.9-36.7) 10/24/24 05:42 Sodium 143 mmol/L (136-145) 10/24/24 05:42 Potassium 3.4 mmol/L (3.5-5.1) L 10/24/24 05:42 Chloride 107 mmol/L (98-107) 10/24/24 05:42 Carbon Dioxide 27 mmol/L (22-29) 10/24/24 05:42 Anion Gap 12.4 (5-19) 10/24/24 05:42 BUN 6 mg/dL (8-23) L 10/24/24 05:42 Creatinine 1.0 mg/dL (0.7-1.2) 10/24/24 05:42 GFR Calculation Not Reportable 10/24/24 05:42 Glucose 110 mg/dL (65-115) 10/24/24 05:42 Calculated Osmolality 294 mOsm/kg (285-295) 10/24/24 05:42 Calcium 9.2 mg/dL (8.5-10.5) 10/24/24 05:42 Phosphorus 2.8 mg/dL (2.5-4.5) 10/24/24 05:42 Magnesium 1.9 mg/dL (1.7-2.3) 10/24/24 05:42 Iron 13 ug/dL (59-158) L 10/23/24 18:08 Iron Cancelled 10/23/24 18:08 TIBC 327 mcg/dl 10/23/24 18:08 % Saturation 3.9 % (20-50) L 10/23/24 18:08 Unsat Iron Binding 314 ug/dL (112-347) 10/23/24 18:08 Ferritin 22 ng/mL (30-400) L 10/23/24 18:08 Total Bilirubin 0.5 mg/dL (0.15-1.2) 10/24/24 05:42 AST 16 U/L (0-40) 10/24/24 05:42 ALT 13 U/L (0-41) 10/24/24 05:42 Alkaline Phosphatase 75 U/L (40-130) 10/24/24 05:42 Troponin T Baseline 18 ng/L (0-15) H 10/23/24 18:08 Troponin T 120 Minute 15.90 ng/L (0-15) H 10/23/24 20:59 Delta Troponin T -2.10 ABS# (0-10) L 10/23/24 20:59 Troponin T Hi Sens 6Hr 17.42 ng/L (0-15) H 10/24/24 00:28 Troponin T Hi Sens 6Hr Delta -0.58 ng/L (0-12) L 10/24/24 00:28 NT-Pro-B Natriuret Pep 280 pg/mL (0-125) H 10/23/24 18:08 Total Protein 6.6 g/dL (6.6-8.7) 10/24/24 05:42 Albumin 3.9 g/dL (3.5-5.2) 10/24/24 05:42 Globulin 2.7 g/dL (1.3-4.6) 10/24/24 05:42 Vitamin B12 763 pg/mL (232-1245) 10/23/24 18:08 Folate 15.4 ng/mL (4.5-32.2) 10/23/24 18:08 TSH 2.46 uIU/mL (0.27-4.20) 10/24/24 05:42 Free T4 1.48 ng/dL (0.82-1.77) 10/24/24 05:42 Urine Color Yellow (Yellow) 10/24/24 02:36 Urine Appearance Clear (CLEAR) 10/24/24 02:36 Urine pH 7.0 (5-7) 10/24/24 02:36 Ur Specific [place] 1.012 (1.005-1.030) 10/24/24 02:36 Urine Protein Negative (Negative) 10/24/24 02:36 Urine Glucose (UA) Negative (Normal) 10/24/24 02:36 Urine Ketones Negative (Negative) 10/24/24 02:36 Urine Blood Negative (Negative) 10/24/24 02:36 Urine Nitrate Negative (Negative) 10/24/24 02:36 Urine Bilirubin Negative (Negative) 10/24/24 02:36 Urine Urobilinogen 0.2 mg/dL (Negative) 10/24/24 02:36 Ur Leukocyte Esterase Negative (Negative) 10/24/24 02:36 Urine RBC 0-2 /hpf (0-2) 10/24/24 02:36 Urine WBC 0-5 /hpf (0-5) 10/24/24 02:36 Ur Squamous Epith Cells 0-5 /hpf (0-5) 10/24/24 02:36 Amorphous Sediment Not Reportable 10/24/24 02:36 Urine Bacteria None seen /hpf (NONE) 10/24/24 02:36 Hyaline Casts 0-4 /lpf H 10/24/24 02:36 Coronavirus (PCR) Negative (Negative) 10/24/24 03:20 Influenza A (PCR) Negative (Negative) 10/24/24 03:20 Influenza Type B (PCR) Negative (Negative) 10/24/24 03:20 RSV (PCR) Negative (Negative) 10/24/24 03:20 Blood Type B Positive 10/23/24 22:14 Rho(D) Type Rh positive 10/23/24 22:14 Antibody Screen Negative 10/23/24 22:14 Vitals Last Vital Signs Temp 97.9 F 10/24/24 16:33 Pulse 75 10/24/24 16:33 Resp 18 10/24/24 16:33 BP 149/79 10/24/24 16:33 Pulse Ox 94 10/24/24 16:33 O2 Del Method Room Air 10/24/24 16:33 Discharge Plan Discharge Patient Disposition: Home Condition: Stable Prescriptions: New meclizine 25 mg Tablet 25 mg PO TID PRN (Reason: Dizziness) Qty: 15 0RF metoprolol tartrate 25 mg tablet 25 mg PO BID Qty: 60 0RF Continued hydroxyzine HCl 25 mg tablet 25 mg PO 1XD pantoprazole [Protonix] 40 mg tablet,delayed release (DR/EC) 40 mg PO BID 28 Days Qty: 56 1RF sucralfate [Carafate] 1 gram tablet 1 g PO BID 28 Days Qty: 56 0RF ondansetron 4 mg tablet,disintegrating 4 mg PO Q8H PRN (Reason: nausea and vomiting) 10 Days Qty: 30 0RF multivitamin Tablet 1 tab PO DAILY Qty: 30 0RF Discharge Orders: Discharge Order (Routine); Ordered 10/24/24 Ordered By: James Eid Referrals: Christopher Stone MD [Physician] - 1 week (We have faxed your information to [facility] to get an appointment set up for a week from today. If you have not heard from them in 2 business days give them a call at [phone].) Discharge Diet: Usual diet Discharge Activity: Resume usual activity and Increase activity as tolerated Patient Instructions: Metoprolol (By mouth), Meclizine (By mouth), Dizziness (GEN), Opioid Safety Activity Restrictions/Additional Instructions: Take meclizine 25 mg as needed for dizziness. Metoprolol 25 mg twice a day has been added to your medication list. Please check your blood pressure daily at home maintain a blood pressure diary and follow-up with a primary care provider in the next 2 weeks for further adjustment of antihypertensives. Discharge Attestations Time Spent in Discharge Care*: greater than 30 min Specific Discharge Activities: educating patient, discussing with pcp/other providers, discussing with pillowcase turner/social workers/dc planners, documenting/other paperwork and evaluating patient/reviewing data Status at Discharge: Cognitive status at discharge: cognitively intact, Behavioral status at discharge: cooperative, Functional status at discharge: independent ambulation, Overall status at discharge: patient is back to baseline Quality Metrics Clinical Quality Measures [ No reported AMI, CVA or VTE this stay] Coding Level of Care Code 11270 Total time (in minutes) for Discharge: 60 Diagnoses Orthostatic lightheadedness R42 Dizziness R42
--- NOTE | 2024-10-25 09:10 | PC.SOCIAL ---
Patient discharged over the weekend
--- NOTE | 2024-10-25 14:43 | DCPLANNER ---
messaged heart care for er f/u
== END 2024-10-24 18:17 | disposition home or self-care (01) ==
LOC: ER 22:24 → MEDSURG 22:43
PROVIDERS: Emergency Medicine; Admitting Provider Internal Medicine; Emergency Provider Nurse Practitioner; Visit Provider Student in an Organized Health Care Education/Training Program
DX: R42 Dizziness and giddiness (principal); K21.9 Gastro-esophageal reflux disease without esophagitis; I25.10 Atherosclerotic heart disease of native coronary artery without angina pectoris; Z95.5 Presence of coronary angioplasty implant and graft; Z79.82 Long term (current) use of aspirin; Z79.02 Long term (current) use of antithrombotics/antiplatelets
CPT/HCPCS: 36415; 71045; 80053; 81001; 82607; 82728; 82746; 83540; 83550; 83735; 83880; 84100; 84439; 84443; 84484; 85025; 85610; 85730; 86850; 86900; 87637; 93005; 96361; 96374; 99285; G0378; J1940

== ENCOUNTER → 2024-11-01 09:58 | Outpatient (BNVA) | payer MEDICARE, SELFPAY | PROVIDERS: Visit Provider Internal Medicine | DX: I25.118 Atherosclerotic heart disease of native coronary artery with other forms of angina pectoris (principal); D62 Acute posthemorrhagic anemia; K92.2 Gastrointestinal hemorrhage, unspecified; Z87.891 Personal history of nicotine dependence | CPT/HCPCS: 99205 ==

== ENCOUNTER 2024-11-12 06:32 | Outpatient (CLI) | payer MEDICARE, SELFPAY ==
[2024-11-12 07:26] VITALS: BMI 26.8
--- NOTE | 2024-11-12 07:30 | ECG_ITS ---
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 The perfusion scan will be documented separately. DATA: Baseline heart rate was 80 beats per minute. Baseline blood pressure was 148/78 millimeters of mercury. Target heart rate was 149. Maximum heart rate achieved was 120. which was 80% of the predicted target heart rate. Maximum blood pressure was 152/75 millimeters of mercury. The reason for ending the test was completion of the protocol. The patient did not experience any symptoms. ELECTROCARDIOGRAM: BASELINE: Sinus rhythm. Normal axis. Otherwise, no ST-T changes suggestive of ischemia noted. No arrhythmia noted. EXERCISE: After Lexiscan injection, no ST-T changes suggestive of ischemic noted. No arrhythmia noted. CONCLUSION: Please note due to baseline abnormality of the EKG specificity and sensitivity of the EKG portion of LexiScan MIBI stress test will be low 1. EKG not suggestive of ischemia 2. Lexiscan injection unremarkable. 3. Perfusion scan will be documented separately. Electronically Signed On 11-29-2024 22:36:42 COW TENDER by MARA SMITH [id number]
--- NOTE | 2024-11-12 07:30 | NMCV_ITS ---
NM yajaira perf SPECT r/s* [id number] Erasto Gianni Age: 69 Gender: M : 1955 Exam Date: 11/12/2024 07:30 Ordering Phys: Terrence Browne M.D ([email or web address]) Technologist: VIRI Purvis Exam [facility]: [facility] Indications: CP STRESS TEST Please see separate stress test report in [facility] for full findings IMAGE PROTOCOL Rest/Stress 1 Lexiscan Day Radiopharmaceutical Dose (mCi) Administration Site Administered by Rest: Tc-99m 10.9 IV VIRI Purvis Sestamibi Stress:Tc-99m 32.4 IV Amna Ballard, POULTRY BUYER Sestamibi Rest: 12-Nov-2024 60 Discovery 630 Stress: 12-Nov-2024 30 Discovery 630 0.4mg Lexiscan. Images obtained in supine and prone position. SPECT RESULTS Technical Quality: Good Raw Data Analysis: Normal Image Corrections: No attenuation or motion correction applied Summed Stress Score: 0 Summed Rest Score: 1 Summed Difference Score: 0 PERFUSION FINDINGS Medium sized area of fixed perfusion defect noted in basal to distal inferior wall suggestive of old myocardial infarction versus scarring FUNCTIONAL RESULTS (calculated via Gated SPECT) Stress Image LV EF (%): 65 Stress EDV (mL):103 TID: 1.15 Stress ESV (mL):36 FUNCTIONAL FINDINGS: There is normal left ventricular systolic function. IMPRESSIONS Medium size area of old myocardial infarction versus scarring noted in basal to distal inferior wall without ike-infarct ischemia. EKG segment will be documented separately Joshua Clay MD (Electronically Signed) Final Date: 12 November 2024 21:54 S
[2024-11-12] MEDS: regadenoson 0.4 Mg/5 ml Syringe IVP (08:14)
[2024-11-12 08:27] VITALS: BP 129/55; PULSE 95
== END 2024-11-12 06:33 | disposition home or self-care (01) ==
LOC: CDL 06:35
PROVIDERS: Visit Provider Internal Medicine
DX: R07.9 Chest pain, unspecified (principal); R06.02 Shortness of breath; R93.1 Abnormal findings on diagnostic imaging of heart and coronary circulation
CPT/HCPCS: 36415; 78452; 93017; 96374; A9500; J2785

== ENCOUNTER → 2024-11-22 08:22 | Outpatient (BNVA) | payer MEDICARE, SELFPAY | PROVIDERS: PCP Nurse Practitioner Family; Visit Provider Nurse Practitioner Family | DX: I25.118 Atherosclerotic heart disease of native coronary artery with other forms of angina pectoris (principal); D62 Acute posthemorrhagic anemia; K92.2 Gastrointestinal hemorrhage, unspecified; Z87.891 Personal history of nicotine dependence | CPT/HCPCS: 36415; 80048; 83880; 85025; 99214 ==

== ENCOUNTER → 2024-11-24 08:08 | Outpatient (BNVA) | payer MEDICARE, SELFPAY | PROVIDERS: PCP Nurse Practitioner Family; Visit Provider Surgery | DX: K92.2 Gastrointestinal hemorrhage, unspecified | CPT/HCPCS: 99214 ==

== ENCOUNTER 2024-11-25 11:17 | Day surgery (SDC) | payer MEDICARE, SELFPAY ==
[2024-11-25 11:32] VITALS: BMI 28.7
[2024-11-25 11:37] VITALS: BP 140/83; PULSE 92; RESP 18; TEMP 36.3; O2SAT 96
--- NOTE | 2024-11-25 11:42 | ECG_ITS ---
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 Measurements Intervals Wilsey Rate: 80 P: 40 AK: 157 QRS: 13 QRSD: 91 T: 29 QT: 360 QTc: 417 Interpretive Statements SINUS RHYTHM Compared to ECG 10/24/2024 02:37:02 T-wave abnormality no longer present Electronically Signed On 11-27-2024 13:38:23 WHEEL BORER by Terrence Browne M.D. [id number]
--- NOTE | 2024-11-25 13:50 | ANES.PREANE2 ---
Pre-Anesthetic Assessment Height/Weight: Height 1.83 m Weight 96.162 kg Temp Pulse Resp BP Pulse Ox O2 Del Method 97.4 F L 92 18 140/83 96 Room Air 11/25/24 11:37 11/25/24 11:37 11/25/24 11:37 11/25/24 11:37 11/25/24 11:37 11/25/24 11:37 Preop Diagnosis: Ulcer of Esophagus, Anemia Operation Date: 11/25/24 13:05 Proposed Procedures p EGD 24544, K22.10(Not Applicable) - Rajeev Khalil MD Familial anesthetic complications: none Was Beta Bhaskar taken within 24 hours: N/A Was Clonidine taken within 24 hours: N/A Last intake: Intake Last Liquid Date 11/24/24 Last Liquid Time 22:00 Last Solid Date 11/24/24 Last Solid Time 22:00 Social No alcohol and No tobacco Exam alert, oriented x 3, clear to auscultation bilaterally and regular rate & rhythm Airway Submandibular: within normal limits Cervical ROM: within normal limits Mallampati: Class II Dentition: false Pulmonary None reported CV/HEM Unstable Angina, Arrythmia (tachycardia), Coronary Artery Disease, Congestive Heart Failure and Myocardial Infarction Patient has been experiencing chest pain symptoms for several months that have worsened since his GI bleed and anemia recently. He is off of all antiplatelet agents. He is scheduled to have repeat endoscopy. I gave him all options including admission to hospital for expediting further GI workup and eventually proceeding with coronary angiogram. However he wants to have workup done as outpatient. We will start him on Imdur 60 mg daily. We will also obtain a Lexiscan to assess ischemic burden. Patient given ER warning signs and symptoms. Told to come to ER if has persistent chest discomfort despite of sublingual nitroglycerin. His situation is complex as proceeding with PCI currently can complicate further GI bleed issues. Will also discuss his case with his GI physician. Follow up visit in 1 month EKG obtained today NSR Rate of 80. Walking across the parking lot caused chest pain. None reported Hepatic None reported GI Peptic Ulcer Disease Metabolic None reported Musc/skel Osteoarthritis/DJD Neuropsych None reported Anesthetic Plan ASA status: 4 Anesthesia: MAC Medications/Allergies Home Medications Medication Instructions Recorded Confirmed Last Taken Type hydroxyzine HCl 25 mg tablet 25 mg PO 1XD 1211/24/24 11/24/24 History multivitamin 1 tab PO DAILY #30 tabs 10/19/24 11/24/24 11/24/24 Rx diphenhydramine HCl 25 mg capsule 50 mg PO .q hs 11/01/24 11/24/24 11/24/24 History (Benadryl) melatonin 10 mg capsule 20 mg PO DAILY 11/01/24 11/24/24 11/24/24 History acetaminophen 500 mg tablet 500 mg PO Q6H PRN Pain 11/22/24 11/24/24 11/24/24 History pantoprazole 40 mg tablet,delayed 40 mg PO BID 11/24/24 11/24/24 11/24/24 History release Allergies Allergy/AdvReac Type Severity Reaction Status Date / Time doxycycline Allergy Mild ALGY-Rash Verified 11/25/24 11:35 Alpha-Gal Allergy ALGY-Anaphy Verified 11/25/24 11:35 (Pjntnmtpr-Qhcbt-2,3-Gala laxis isosorbide Allergy ALGY-Rash Verified 11/25/24 11:35 [facility] Anesthesia Medical History History of CAD (coronary artery disease) Surgical History (Updated 11/24/24 @ 08:[address]) History of appendectomy History of colonoscopy Family History Mother Alzheimer's dementia Social History Smoking and tobacco/nicotine status: former use of tobacco/nicotine Alcohol intake: current Alcohol intake frequency: 0-2 Drinks per Day Substance/Drug Use: never Data Anesthesia Cardiac Studies: Echocardiogram 10/18/24 Sestamibi Stress Test (Cardiology) 11/12/24
--- NOTE | 2024-11-25 14:15 | W.PM.OPSUD ---
Surgery/Procedure H&P Update DATE OF PROCEDURE: November 25, 2024 DATE H&P PERFORMED: 11/24/24 H&P UPDATE INFORMATION: I have reviewed H&P completed within last 30 days, I have examined patient prior to procedure, No changes to prior documentation and H&P is in [facility] EMR on date indicated PREOP DIAGNOSIS: Ulcer of Esophagus, Anemia PLANNED PROCEDURE: Operation Date: 11/25/24 13:05 Proposed Procedures p EGD 67661, K22.10(Not Applicable) - Rajeev Khalil MD
[2024-11-25 14:27] VITALS: BP 116/76; PULSE 80; RESP 20; TEMP 37; O2SAT 96
[2024-11-25 14:38] VITALS: BP 135/82; PULSE 75; RESP 18; O2SAT 96
--- NOTE | 2024-11-25 15:01 | PM.MISC ---
Miscellaneous Note Purpose of Documentation: Update on patient care Note: After upper endoscopy done today, there is no evidence of ulceration, no evidence of bleeding in the upper GI tract. Patient is cleared from the general surgery standpoint for cardiac intervention, can be started on therapeutic anticoagulation or dual platelet therapy as needed.
== END 2024-11-25 14:56 | disposition home or self-care (01) ==
PROVIDERS: PCP Nurse Practitioner Family; Visit Provider Surgery
PROC: 0DJ08ZZ Inspection of Upper Intestinal Tract, Via Natural or Artificial Opening Endoscopic (ICD-10-PCS; principal; 2024-11-25 13:05)
DX: K29.50 Unspecified chronic gastritis without bleeding (principal); K21.9 Gastro-esophageal reflux disease without esophagitis; I25.10 Atherosclerotic heart disease of native coronary artery without angina pectoris; I50.9 Heart failure, unspecified; I25.2 Old myocardial infarction; K44.9 Diaphragmatic hernia without obstruction or gangrene; Z87.11 Personal history of peptic ulcer disease; Z79.899 Other long term (current) drug therapy; Z88.8 Allergy status to other drugs, medicaments and biological substances; Z87.891 Personal history of nicotine dependence; D64.9 Anemia, unspecified
CPT/HCPCS: 43239; 88305; 88342; 93005; J2704

== ENCOUNTER 2024-11-29 09:18 | Outpatient (CLI) | payer MEDICARE, SELFPAY ==
[2024-11-29 09:48] LABS: Basophils # 0.1 10^3/uL (0.0-0.1); Basophils % 0.9 %; Eosinophils # 0.5 10^3/uL (0.0-0.8); Eosinophils % 6.7 %; Hematocrit 30.3 % (37-53); Lymphocytes # 1.9 10^3/uL (0.8-4.8); Lymphocytes % 25.4 %; Mean Corpuscular HGB Conc 29.4 g/dL (30-55); Mean Corpuscular Hemoglobin 25.6 pg (27-33); Mean Corpuscular Volume 87.3 fl (82-101); Mean Platelet Volume 9.2 fL (7.4-10.4); Monocytes # 0.8 10^3/uL (0.2-0.9); Monocytes % 10.2 %; Neutrophils % 56.5 %; Nucleated Red Blood Cells % 0 %; Platelet Count 440 10^3/cmm (157-399); Red Blood Count 3.47 10^6/uL (3.85-5.65); Red Cell Distribution Width 16.4 % (12.1-15.1); White Blood Count 7.61 10^3/uL (3.29-11.43)
== END 2024-11-29 09:19 | disposition home or self-care (01) ==
LOC: LAB 09:19
PROVIDERS: PCP Nurse Practitioner Family; Visit Provider Nurse Practitioner Family
DX: K92.2 Gastrointestinal hemorrhage, unspecified (principal)
CPT/HCPCS: 36415; 85025

== ENCOUNTER → 2024-12-02 13:19 | Outpatient (BNVA) | payer MEDICARE, SELFPAY | PROVIDERS: PCP Nurse Practitioner Family; Visit Provider Internal Medicine | DX: I25.118 Atherosclerotic heart disease of native coronary artery with other forms of angina pectoris (principal); Z87.891 Personal history of nicotine dependence | CPT/HCPCS: 99214 ==

== ENCOUNTER → 2024-12-08 08:00 | Outpatient (BNVA) | payer MEDICARE, SELFPAY | PROVIDERS: PCP Nurse Practitioner Family; Visit Provider Surgery | DX: Z09 Encounter for follow-up examination after completed treatment for conditions other than malignant neoplasm (principal); R03.0 Elevated blood-pressure reading, without diagnosis of hypertension | CPT/HCPCS: 99213 ==

== ENCOUNTER 2024-12-10 13:22 | Outpatient (CLI) | payer MEDICARE, SELFPAY ==
[2024-12-10 13:56] LABS: Basophils # 0.1 10^3/uL (0.0-0.1); Eosinophils # 0.3 10^3/uL (0.0-0.8); Eosinophils % 4.7 %; Hematocrit 30.4 % (37-53); Lymphocytes # 1.8 10^3/uL (0.8-4.8); Mean Corpuscular HGB Conc 29.6 g/dL (30-55); Mean Corpuscular Hemoglobin 25.5 pg (27-33); Mean Corpuscular Volume 86.1 fl (82-101); Mean Platelet Volume 9.5 fL (7.4-10.4); Monocytes # 0.6 10^3/uL (0.2-0.9); Monocytes % 8.5 %; Neutrophils # 4.49 10^3/uL (1.8-7.7); Neutrophils % 61.5 %; Nucleated Red Blood Cells % 0 %; Platelet Count 345 10^3/cmm (157-399); Red Blood Count 3.53 10^6/uL (3.85-5.65); Red Cell Distribution Width 16.2 % (12.1-15.1); White Blood Count 7.29 10^3/uL (3.29-11.43)
[2024-12-10 14:08] LABS: INR 0.94 (0.83-1.21); Prothrombin Time (Patient) 13.3 Seconds (12.0-15.1)
[2024-12-10 14:16] LABS: Anion Gap 14.2 (5-19); Blood Urea Nitrogen 11 mg/dL (8-23); Calcium 9.1 mg/dL (8.5-10.5); Carbon Dioxide 27 mmol/L (22-29); Chloride 104 mmol/L (98-107); Glucose 128 mg/dL (65-115); Osmolality Calculated 293 mOsm/kg (285-295); Potassium 4.2 mmol/L (3.5-5.1); Sodium 141 mmol/L (136-145)
== END 2024-12-10 13:23 | disposition home or self-care (01) ==
LOC: LAB 13:23
PROVIDERS: PCP Nurse Practitioner Family; Visit Provider Internal Medicine
DX: Z86.79 Personal history of other diseases of the circulatory system (principal); I20.0 Unstable angina; R58 Hemorrhage, not elsewhere classified
CPT/HCPCS: 36415; 80048; 85025; 85610

== ENCOUNTER 2024-12-16 07:22 | Outpatient (CLI) | payer MEDICARE, SELFPAY ==
--- NOTE | 2024-12-15 09:35 | PC.NURSE ---
attempted to call patient about upcoming procedure, no answer, voicemail left to return call.
[2024-12-16] VITALS (37 sets, daily range): BP systolic 116–149; BP diastolic 61–92; PULSE 68–100; RESP 14–19; TEMP 36.6–37.1; O2SAT 88–100; BMI 28.7
--- NOTE | 2024-12-16 07:30 | XACV_ITS ---
Exam Room: 2 Ht: 183 cm Wt: 96 kg BSA: 2.23 m2 Gender: Male : 1955 Any Known Allergies: Other Exam Priority: Routine Procedure(s): Procedure Description: Diagnostic procedure Procedure Description: PCI procedure Procedure Description: Coronary IVUS Procedure Description: Drug Eluting Coronary Stent Procedure Description: PTCA Procedure Description: Miscellaneous Procedure Description: Coronary Angiography Diagnostic Cath Status: Elective Diagnostic Findings * INDICATION: Worsening angina. * Left Main has no significant disease. * Left Anterior Descending has no significant disease. * Right Coronary Artery has no significant disease. Patent prior stent. * Mid Circumflex: severe 70-80% stenosis, TAN: 3 flow. * Ramus artery has severe instent restenosis of ostial to proximal stent. 90% stenosis, TAN: 3 flow. * Coronary angiography shows right dominance. PCI Status: Elective PCI Indication: Other Interventional Findings * Ramus: 90% stenosis treated with a MDT NC EUPHORA RX [id number] BALLOON, and MDT NC EUPHORA RX [id number] BALLOON. 0% residual stenosis, TAN: 3 flow. * Procedure detail: We engaged left main artery with XB 3.5 guide catheter. Heparin was used to maintain anticoagulation. 0.014 run-through guidewire was used to cross ramus artery stenosis and was put in distal vessel. As the stenosis was within the prior stent, we decided to dilated with 3.0 x 20 mm NC balloon. This was followed by balloon angioplasty with 3.5 x 12 mm NC balloon at high pressure. IVUS was performed which showed good stent expansion. Given prior stent, we did not place a second layer of stents. We then turned our attention to mid left circumflex artery stenosis we predilated the stenosis with 2.75 x 15 mm semicompliant balloon. This was followed with placement of 3.0 x 22 mm resolute [place] drug-eluting stent. At this time final angiogram was performed that showed excellent stent expansion, no residual stenosis and TAN-3 flow. Guidewire and guide catheter were removed. Patient left the Station Engineer Chief in a stable condition.. * Mid Circumflex: 70% stenosis treated with a MDT R SONAM 3.0X22 REJI. 0% residual stenosis, TAN: 3 flow. Conclusions 1. 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 Severe mid left circumflex artery stenosis status post successful revascularization with 1 stent.. 2. Mid Circumflex was treated with a balloon and a Drug Eluting Stent. 3. Ramus was treated with a Balloon, and Balloon. Recommendations * Dual antiplatelet therapy with aspirin and plavix. * High intensity statin therapy. * Outpatient cardiology follow up in 2 weeks. Interventional RX Recommendation: PCI w/o planned CABG Diagnostic RX Recommendation: PCI w/o planned CABG Anticoagulation: Heparin Pressures Phase:Rest AO : 122 / 93 ( 108 ) @ 9:13:00 AM 156 / 79 ( 101 ) @ 9:18:00 AM 122 / 78 ( 99 ) @ 9:31:00 AM 113 / 77 ( 95 ) @ 9:39:00 AM Clinical Evaluation EBL: 5mL-10mL Procedural Details Procedure Consent Obtained. Pre-Procedure Time Out. Identified patient by full name and date of as verbalized by the patient/guarantor. Does the consent match the physician's order: Yes. Accurate & Complete Informed Consent: Yes. Inpatient/Outpatient History & Physical on Chart: Yes. If H&P is completed, is and addenduem needed: No. Visualize and Verify Site with Patient/Guarantor: N/A. Relevant Radiology Images available: Yes. The risks, benefits, and alternatives of sedation and/or procedure were discussed by physician. The patient agrees to continue. Procedure started. [facility] Clinical Fraility Score: 3: Managing Well. Station Engineer Chief Indications: New Onset Angina/unstable angina/negative stess test. Chest Pain Symptom Assessment: Typical Angina Symptoms. Cardiovascular Instability: No. Correct patient, site and procedure confirmed by cath team. PERRLA. Strong, equal hand world travel counselor bilaterally. Lungs clear x 5 lobes. IV Site on Arrival: 20 gauge in the right anticubital. IV Fluids: 0.9% NaCl at KVO. 0 mL infused prior to prosthetics lab technician. Pre Procedural Pulses: bilateral dorsalis pedis was Doppled. Pre Procedural Pulses: bilateral posterior tibial was Doppled. Pre Procedural Pulses: bilateral radial was 2+. Oxygen started at 2liters/min via nasal canula. right groin was prepped with chloroprep then draped in the usual sterile fashion. right radial was prepped with chloroprep then draped in the usual sterile fashion. Physician notified. Baseline sample Acquired. HR: 88 BPM. Patient's family in CPRU room #4. Dr. Browne will update at the completion of the procedure. Equipment: 6F - Radial. Cardiac Cath Pack. ACIST Manifold Kit Model BT 2000. Heparinized Saline (2 units/mL), 1000 mL bag. Physician arrived. Physician scrubbed in. Immediate Pre-Procedure Time Out. Correct Patient: Yes; Correct Procedure: Yes; Correct Site: Yes; Correct Patient Position: Yes; Correct Supplies: Yes; Dried Flammable Prep: Yes; Blood Products Available: N/A;. Lidocaine 1% infiltrated to the right radial. Arterial access obtained. A 5 somali TIG catheter in over the exchange J wire. Multiple views taken of left coronary artery. Catheter redirected to the RCA. Multiple views taken of right coronary artery. Catheter removed over the exchange J wire. 6 somali XB 3.5 guide catheter was inserted over the exchange J wire. Runthrough guidewire was advanced through the guide catheter to lesion in the Ramus. Inflation number : 1 A MDT NC EUPHORA RX [id number] BALLOON was prepped and advanced across the Ramus , then inflated to 12 SHOLA for 0:08 seconds. Inflation number: 2 The MDT NC EUPHORA RX [id number] BALLOON was reinflated across the Ramus, to 16 SHOLA for 0:15 seconds. Inflation number: 3 The MDT NC EUPHORA RX [id number] BALLOON was reinflated across the Ramus, to 18 SHOLA for 0:10 seconds. Inflation number: 4 The MDT NC EUPHORA RX [id number] BALLOON was reinflated across the Ramus, to 18 SHOLA for 0:09 seconds. Balloon out. Results checked. IVUS catheter in OTW. IVUS performed of the Ramus. IVUS catheter out OTW. Inflation number : 5 A MDT NC EUPHORA RX [id number] BALLOON was prepped and advanced across the Ramus , then inflated to 18 SHOLA for 0:16 seconds. Balloon out. Results checked. Runthrough guidewire redirected to the CX. Inflation number : 1 A AB TREK 2.75X15 RX BALLOON was prepped and advanced across the Mid CX , then inflated to 8 SHOLA for 0:16 seconds. Balloon out. Results checked. Inflation Number : 1 A MDT R SONAM 3.0X22 REJI -Lot Number# [id number] was prepped and advanced across the Mid CX1. The stent was deployed at 12 SHOLA for 0:17 seconds. Exp. . Stent balloon out over wire. Results checked. Wire out. Results checked. Guide catheter out over the exchange J wire. Physician scrubbed out. A TR Band was successful obtaining hemostatsis at the Right Radial artery insertion site. Post Procedure: Pulses reassessed and unchanged. PERRLA. Strong, equal hand world travel counselor bilaterally. No VTE prophylaxis required. Medication's Wasted: Lidocaine 1% = 18 mL. Medication's Wasted: Nitro = 49.6 mg. Medication's Wasted: Other = Fentanyl 50mcg. Total IV fluids: 50 mL. PCI Indication: CAD (without ischemic symptoms). Post-op diagnosis: POBA of the Ramus/REJI x1 to the Mid CX. Complications: none. Estimated blood loss: 5mL-10mL. Responsiveness - Normal response to verbal stimuli; alert and oriented, PERRLA. Airway - Unaffected, no intervention required; spontaneous ventilation. Circulation: W/N/L, pulses unchanged. Nausea/Vomiting: No. Procedure completed. Patient transferred by wheelchair to CPRU. Vital chart was stopped. Access Site Site: Right Radial artery Sheath Size: 6 Fr Hemostasis Method: TR Band Hemostasis Success: Successful Procedure Medications Start: 8:46 AM Stop: 8:46 AM Medication: Benadryl Amount: 25 mg Route: I.V. Start: 8:54 AM Stop: 8:54 AM Medication: Fentanyl Amount: 25 mcg Route: I.V. Start: 9:05 AM Stop: 9:05 AM Medication: Versed Amount: 1 mg Start: 9:05 AM Stop: 9:05 AM Medication: Fentanyl Amount: 25 mcg Route: I.V. Start: 9:09 AM Stop: 9:09 AM Medication: Nitrogylcerin Amount: 200 mcg Route: I.A. Start: 9:11 AM Stop: 9:11 AM Medication: Versed Amount: 1 mg Route: I.V. Start: 9:11 AM Stop: 9:11 AM Medication: Fentanyl Amount: 25 mcg Route: I.V. Start: 9:12 AM Stop: 9:12 AM Medication: Angiomax (5mg/mL) Amount: 14 ml Route: I.V. bolus Start: 9:20 AM Stop: 9:20 AM Medication: Versed Amount: 1 mg Route: I.V. Start: 9:20 AM Stop: 9:20 AM Medication: Fentanyl Amount: 50 mcg Route: I.V. Start: 9:23 AM Stop: 9:23 AM Medication: Angiomax (5mg/mL) Amount: 33 ml/hr Route: I.V. drip Start: 9:38 AM Stop: 9:38 AM Medication: Versed Amount: 1 mg Route: I.V. Start: 9:39 AM Stop: 9:39 AM Medication: Fentanyl Amount: 25 mcg Route: I.V. Start: 9:46 AM Stop: 9:46 AM Medication: Nitrogylcerin Amount: 200 mcg Route: I.A. I, the attending physician, have reviewed and verified all procedure medications. Yes, all medications given per verbal order History/Risk Factors Hypertension: No Dyslipidemia: No Peripheral Arterial Disease (PAD): No Myocardial Infarction (NH): No Obesity: No Renal Disease: No Tobacco Use: Former Prior Interventions PCI: Yes CABG: No Valve Surgery: No Report Signatures Finalized by Terrence Browne MD on 01/02/2025 11:19 AM
[2024-12-16] MEDS: aspirin 325 mg Tablet PO (07:50)
--- NOTE | 2024-12-16 08:37 | P.HPUD_ITS ---
Surgery/Procedure H&P Update DATE OF PROCEDURE: December 16, 2024 DATE H&P PERFORMED: 12/02/24 PREOP DIAGNOSIS: Worsening angina PRIMARY INDICATION FOR PROCEDURE: Worsening angina PLANNED PROCEDURE: Operation Date: 12/16/24 10:00 Proposed Procedures p Cardiac Catheterization - [facility] w/wo LV & Coros(Left) - Terrence Browne M.D Possible percutaneous coronary intervention PATIENT REASSESSED PRIOR TO SEDATION, WITH NO CHANGE NOTED: Yes PHYSICAL EXAM: alert, oriented x 3, clear to auscultation bilaterally and regular rate & rhythm AIRWAY EVAL/ANESTHESIA PLAN: normal airway, ASA III, Local Anesthesia, Risks, benefits & alternatives of sedation and/or procedure discussed and Patient agrees to continue as planned ADDITIONAL INFORMATION: Moderate sedation
--- NOTE | 2024-12-16 10:02 | P.PCN_ITS ---
Procedure Note: Date of procedure: 12/16/24 Pre-procedure diagnosis: Worsening angina Post-procedure diagnosis: other (Severe instent restenosis of ramus artery/ severe mid Left circumflex artery stenosis) Procedure: Left main artery is patent. LAD is patent. Ostial to proximal ramus artery has prior stents. Undersized on IVUS. Have severe 90% stenosis. Status post successful revascularization with balloon angioplasty. Mid left circumflex artery has severe 70 to 80% stenosis. Status post successful revascularization with 1 stent. RCA is patent. Dual antiplatelet therapy with aspirin and plavix for atleast 1 year High intensity statin therapy Estimated blood loss (mL): 5 Complications: None Condition: stable Disposition: floor Coding Level of Care Code Acute Code for [facility] Fwd
--- NOTE | 2024-12-16 10:02 | SUR.PHASEI ---
POST CATH NOTE Received patient from porcelain enamel laborer. Status post cardiac catheterization via the right radial approach. TR Band in place to right radial artery. Site is hemostatic. Patient and family updated by MD. No new orders at this point. Vitals and assessments per flowsheet. Call light within reach. Will continue to monotor.
--- NOTE | 2024-12-16 10:12 | SUR.PHASEI ---
IV DRIPS CONTINUED FROM LCSW Angiomax gtt at 22.6 ml/hr. Normal Saline 75 cc/hr. Both drips insfusing without difficulty. Report called by Kristen Crisostomo RN to Ashly MOREIRA.
--- NOTE | 2024-12-16 10:58 | PC.NURSE ---
received from cardiac laboratory associate via stretcher at 1035 into room 105.report received.pt is alert and awake and oriented x 4.denies pain at present.sr on monitor.right radial tr band on and inflated.right hand is warm to touch and with brisk capillary refill.palpable radial pulse noted distal to tr band.no hematoma noted .pt oriented to room environment.pt instructed in activity restrictions s/p radial artery procedure..and instructed to notify staff for any bleeding,pain,numbness,sob,or for any concerns at all.pt verb understanding of instructions
--- NOTE | 2024-12-16 13:37 | PC.NURSE ---
angiomax turned off at 12:[address] tsai
[2024-12-16] MEDS: pantoprazole DR 40 mg Tablet PO (13:41)
--- NOTE | 2024-12-16 14:04 | ECG_ITS ---
[facility] Test Date: 2024-12-16 Pat Name: Gianni Maurer Department: Room: 105 Gender: Male Director Of Global Marketing: : 1955 Requested By: Terrence Browne Order Number: [id number] Reading MD: MARA SMITH Measurements Intervals [place] Rate: 74 P: 22 VT: 152 QRS: 45 QRSD: 93 T: 20 QT: 365 QTc: 407 Interpretive Statements SINUS RHYTHM Compared to ECG 11/25/2024 11:51:06 No significant changes Electronically Signed On 12-21-2024 23:54:48 OFFICE SUPERVISOR by MARA SMITH [id number]
--- NOTE | 2024-12-16 16:47 | PC.NURSE ---
tr band slowly deflated and eventually removed at 1600.right hand remains warm to touch and with brisk capillary refill.no hematoma noted.Palpable radial pulse noted.site dressed with 2x2 gauze and secured with biocclusive drsg.pt instructed in activity restrictions..and instructed to notify staff for any bleeding,pain,numbness,sob,or for any concerns at all.pt verb understanding of instructions
[2024-12-16] MEDS: atorvastatin 40 mg Tablet PO (20:09)
[2024-12-17] VITALS: BP 140/73; PULSE 100; RESP 18; TEMP 36.5; O2SAT 99
[2024-12-17 03:12] LABS: Basophils # 0.1 10^3/uL (0.0-0.1); Basophils % 0.8 %; Eosinophils # 0.4 10^3/uL (0.0-0.8); Eosinophils % 4.6 %; Hematocrit 30.9 % (37-53); Lymphocytes # 1.9 10^3/uL (0.8-4.8); Lymphocytes % 21.9 %; Mean Corpuscular HGB Conc 28.2 g/dL (30-55); Mean Corpuscular Hemoglobin 24.7 pg (27-33); Mean Corpuscular Volume 87.8 fl (82-101); Mean Platelet Volume 9.9 fL (7.4-10.4); Monocytes # 0.8 10^3/uL (0.2-0.9); Monocytes % 9.6 %; Neutrophils # 5.31 10^3/uL (1.8-7.7); Neutrophils % 62.9 %; Nucleated Red Blood Cells % 0 %; Platelet Count 297 10^3/cmm (157-399); Red Blood Count 3.52 10^6/uL (3.85-5.65); Red Cell Distribution Width 16.8 % (12.1-15.1); White Blood Count 8.45 10^3/uL (3.29-11.43)
[2024-12-17 03:41] LABS: Anion Gap 14.2 (5-19); Blood Urea Nitrogen 15 mg/dL (8-23); Calcium 8.9 mg/dL (8.5-10.5); Carbon Dioxide 23 mmol/L (22-29); Chloride 103 mmol/L (98-107); Creatinine Clr Calc Pharmacy 74.0746; Glucose 106 mg/dL (65-115); Osmolality Calculated 283 mOsm/kg (285-295); Potassium 4.2 mmol/L (3.5-5.1); Sodium 136 mmol/L (136-145)
[2024-12-17 04:52] VITALS: BP 128/72; PULSE 80; RESP 16; O2SAT 96
[2024-12-17 08:07] VITALS: BP 143/82; PULSE 74; RESP 15; TEMP 36.6; O2SAT 94
[2024-12-17] MEDS: clopidogrel 75 mg Tablet PO (09:26)
[2024-12-17] MEDS: aspirin 81 mg EC Tablet PO (09:26)
[2024-12-17] MEDS: pantoprazole DR 40 mg Tablet PO (09:26)
--- NOTE | 2024-12-17 09:53 | P.DS_ITS ---
Documented by User: Mayra Krueger NP 12/17/24 09:58 Discharge Providers Date of Admission: 12/16/2024 Date of Discharge: December 17, 2024 Attending Provider at Discharge: Terrence Browne M.D Primary Care Provider: Analy Louise Reason for Visit Reason for Visit: I200 Brief History: 69-year-old man with past medical histor y of coronary artery disease with multiple stents in RCA and ramus artery recently established care with us. These procedures were done in [facility] in [place]. He was recently admitted with GI bleed. He says since then has been having more frequent chest discomfort episodes. Initially they were orally exertional. Now has felt some resting discomfort. It is associated with tachycardia. He is supposed to have repeat endoscopy with possible biopsies. He is off of antiplatelet agent since the GI bleed. Had 2 admissions secondary to anemia. Also says gets very short of breath with minimal exertion. No prior history of GI bleeds. Hospital Course Hospital Course He underwent left heart cath. Left main artery is patent. LAD is patent. Ostial to proximal ramus artery has prior stents. Undersized on IVUS. Have severe 90% stenosis. Status post successful revascularization with balloon angioplasty. Mid left circumflex artery has severe 70 to 80% stenosis. Status post successful revascularization with 1 stent. RCA is patent. He had an uneventful post angiogram course. He will be discharged home in stable condition. Physical Exam Narrative: General: No apparent distress, healthy appearing, well nourished HENMT: normoceophalic Muskuloskeletal: Full ROM Lymphatic: no lymphedema noted Respiratory: Normal respiratory effort, clear to auscultation bilaterally throughout all lung kendrick, no use of accessory muscles Cardio: No JVD, regular rate, regular rhythm, S1 S2 normal, no murmurs, peripheral pulses 2+ radial palpated bilaterally GI: Normal to inspection, nondistended Extremities: Full ROM, normal, normal capillary refill, no cyanosis or edema Neuro: Alert and oriented x4, no focal motor deficits Psych: Affect normal, denies suicidal ideation, mental status grossly normal Skin: right radial cath site clean, dry, intact w/o s/s of hematoma Discharge Data Studies Completed and Pending Pending at discharge Category Date Time Status VP [employer]ET[employer] request for service Routine Exams 12/16/24 07:30 Taken Laboratory Results WBC 8.45 10^3/uL (3.29-11.43) 12/17/24 02:42 RBC 3.52 10^6/uL (3.85-5.65) L 12/17/24 02:42 Hgb 8.70 g/dL (11.27-16.99) L 12/17/24 02:42 Hct 30.9 % (37-53) L 12/17/24 02:42 MCV 87.8 fl (82-101) 12/17/24 02:42 MCH 24.7 pg (27-33) L 12/17/24 02:42 MCHC 28.2 g/dL (30-55) L 12/17/24 02:42 RDW 16.8 % (12.1-15.1) H 12/17/24 02:42 Plt Count 297 10^3/cmm (157-399) 12/17/24 02:42 MPV 9.9 fL (7.4-10.4) 12/17/24 02:42 Neut % (Auto) 62.9 % 12/17/24 02:42 Lymph % (Auto) 21.9 % 12/17/24 02:42 [place] % (Auto) 9.6 % 12/17/24 02:42 Eos % (Auto) 4.6 % 12/17/24 02:42 Baso % (Auto) 0.8 % 12/17/24 02:42 Neut # (Auto) 5.31 10^3/uL (1.8-7.7) 12/17/24 02:42 Lymph # (Auto) 1.9 10^3/uL (0.8-4.8) 12/17/24 02:42 [place] # (Auto) 0.8 10^3/uL (0.2-0.9) 12/17/24 02:42 Eos # (Auto) 0.4 10^3/uL (0.0-0.8) 12/17/24 02:42 Baso # (Auto) 0.1 10^3/uL (0.0-0.1) 12/17/24 02:42 Nucleated RBC % (auto) 0 % 12/17/24 02:42 Nucleated RBCs # 0.0 /100WBC 12/17/24 02:42 Sodium 136 mmol/L (136-145) 12/17/24 02:42 Potassium 4.2 mmol/L (3.5-5.1) 12/17/24 02:42 Chloride 103 mmol/L (98-107) 12/17/24 02:42 Carbon Dioxide 23 mmol/L (22-29) 12/17/24 02:42 Anion Gap 14.2 (5-19) 12/17/24 02:42 BUN 15 mg/dL (8-23) 12/17/24 02:42 Creatinine 1.1 mg/dL (0.7-1.2) 12/17/24 02:42 GFR Calculation Not Reportable 12/17/24 02:42 Glucose 106 mg/dL (65-115) 12/17/24 02:42 Calculated Osmolality 283 mOsm/kg (285-295) L 12/17/24 02:42 Calcium 8.9 mg/dL (8.5-10.5) 12/17/24 02:42 Procedures Performed left heart catheterization: Left main artery is patent. LAD is patent. Ostial to proximal ramus artery has prior stents. Undersized on IVUS. Have severe 90% stenosis. Status post successful revascularization with balloon angioplasty. Mid left circumflex artery has severe 70 to 80% stenosis. Status post successful revascularization with 1 stent. RCA is patent. Vitals Last Vital Signs Temp 97.8 F 12/17/24 08:07 Pulse 74 12/17/24 08:07 Resp 15 12/17/24 08:07 BP 143/82 12/17/24 08:07 Pulse Ox 94 12/17/24 08:07 O2 Del Method Room Air 12/17/24 08:07 Discharge Plan Discharge Patient Disposition: Home Prescriptions: New atorvastatin 40 mg Tablet 40 mg PO BEDTIME Qty: 90 2RF clopidogrel 75 mg Tablet 75 mg PO DAILY Qty: 90 3RF Continued acetaminophen 500 mg tablet 500 mg PO Q6H PRN (Reason: Pain) pantoprazole 40 mg tablet,delayed release (DR/EC) 40 mg PO QDAY 30 Days Qty: 30 5RF melatonin 10 mg capsule 20 mg PO DAILY diphenhydramine HCl [Benadryl] 25 mg capsule 50 mg PO .q hs aspirin [Adult Aspirin Regimen] 81 mg tablet,delayed release (DR/EC) 81 mg PO DAILY hydroxyzine HCl 25 mg tablet 25 mg PO 1XD multivitamin Tablet 1 tab PO DAILY Qty: 30 0RF Discharge Orders: Discharge Order (Routine); Ordered 12/17/24 Ordered By: Terrence Browne Referrals: Leeanne Chan FNP [Nurse Practitioner] - 12/30/24 2:30 pm Diet: Cardiac Activity: Increase activity as tolerated Patient Instructions: Atorvastatin (By mouth), Clopidogrel (By mouth), Coronary Angioplasty (DC), Post Angiogram Home Care Instructions Activity Restrictions/Additional Instructions: Discussed with patient no heavy lifting more than a gallon of milk as well as going up or down steps for 3 days. No driving for 3 days from cath procedure. Monitor for and report signs or symptoms of bleeding. Monitor for and report s/s of infection such as fever 101 or greater, swelling, redness or pain to the wrist. Patient will continue dual antiplatelet therapy with aspirin and plavix for at least one year. continue atorvastatin. F/U in the clinic in 7 days with BMP and CBC. She is chronically anemic. Print Language: Guatemalan Discharge Date/Time: 12/17/24 10:06 Discharge Attestations Time Spent in Discharge Care*: less than 30 min Status at Discharge: Cognitive status at discharge: cognitively intact , Behavioral status at discharge: cooperative , Quality Metrics Clinical Quality Measures [ No reported AMI, CVA or VTE this stay] Coding Level of Care Code Acute Code for [facility] Fwd Documented by User: Terrence Browne M.D 12/17/24 21:42 Discharge Providers Attending Provider at Admission: Terrence Browne MD Reason for Visit Reason for Visit: I200 Brief History: 69-year-old man with past medical histor y of coronary artery disease with multiple stents in RCA and ramus artery [place]. He was recently admitted with GI bleed. Patient had concern of anemia and GI bleed. Was cleared for DAPT per GI/ Surgery after procedures. Patient has been having worsening angina with now resting, typical severe chest pain episodes. Was scheduled to have cardiac catherization Hospital Course Hospital Course He underwent left heart cath. Left main artery is patent. LAD is patent. Ostial to proximal ramus artery has prior stents. Undersized on IVUS. Have severe 90% stenosis. Status post successful revascularization with balloon angioplasty. Mid left circumflex artery has severe 70 to 80% stenosis. Status post successful revascularization with 1 stent. RCA is patent. He had an uneventful post angiogram course. He will be discharged home in stable condition. Physical Exam Narrative: GENERAL: Patient is alert, awake and oriented x3. [] NECK: No jugular vein distension. [] HEENT: No cyanosis. No icterus. No pallor. [] HEART: Regular, bradycardic S1 and S2. No murmur, rub or gallop. [] LUNGS: Clear to auscultate bilaterally. [] CENTRAL NERVOUS SYSTEM: Grossly nonfocal. [] EXTREMITIES: Lower extremities with no edema bilaterally. Discharge Plan Discharge Patient Disposition: Home Prescriptions: New atorvastatin 40 mg Tablet 40 mg PO BEDTIME Qty: 90 2RF clopidogrel 75 mg Tablet 75 mg PO DAILY Qty: 90 3RF Continued acetaminophen 500 mg tablet 500 mg PO Q6H PRN (Reason: Pain) pantoprazole 40 mg tablet,delayed release (DR/EC) 40 mg PO QDAY 30 Days Qty: 30 5RF melatonin 10 mg capsule 20 mg PO DAILY diphenhydramine HCl [Benadryl] 25 mg capsule 50 mg PO .q hs aspirin [Adult Aspirin Regimen] 81 mg tablet,delayed release (DR/EC) 81 mg PO DAILY hydroxyzine HCl 25 mg tablet 25 mg PO 1XD multivitamin Tablet 1 tab PO DAILY Qty: 30 0RF Discharge Orders: Discharge Order (Routine); Ordered 12/17/24 Ordered By: Terrence Browne Referrals: Leeanne Chan FNP [Nurse Practitioner] - 12/30/24 2:30 pm Diet: Cardiac Activity: Increase activity as tolerated Patient Instructions: Atorvastatin (By mouth), Clopidogrel (By mouth), Coronary Angioplasty (DC), Post Angiogram Home Care Instructions Activity Restrictions/Additional Instructions: Discussed with patient no heavy lifting more than a gallon of milk as well as going up or down steps for 3 days. No driving for 3 days from cath procedure. Monitor for and report signs or symptoms of bleeding. Monitor for and report s/s of infection such as fever 101 or greater, swelling, redness or pain to the wrist. Patient will continue dual antiplatelet therapy with aspirin and plavix for at least one year. continue atorvastatin. F/U in the clinic in 7 days with BMP and CBC. She is chronically anemic. Print Language: Guatemalan Discharge Date/Time: 12/17/24 10:06 Coding Level of Care Code Acute Code for [facility] Fwd
--- NOTE | 2024-12-17 10:04 | PC.NURSE ---
patient provided with discharge instruction verbalized understanding of all information provided accompanied by spouse to Private vehicle all belongings, discharge instructions and stent cad in hand all questions and concerns addressed
== END 2024-12-17 10:06 | disposition home or self-care (01) ==
LOC: CCL 07:23 → CSU 20:41
PROVIDERS: Nurse Practitioner Family; PCP Nurse Practitioner Family; Visit Provider Internal Medicine
DX: I25.119 Atherosclerotic heart disease of native coronary artery with unspecified angina pectoris (principal); Z95.5 Presence of coronary angioplasty implant and graft; R00.0 Tachycardia, unspecified; Z87.891 Personal history of nicotine dependence; Z79.82 Long term (current) use of aspirin; T82.855A Stenosis of coronary artery stent, initial encounter; Y71.8 Miscellaneous cardiovascular devices associated with adverse incidents, not elsewhere classified
CPT/HCPCS: 36415; 80048; 85025; 92920; 92978; 93005; 93454; 96374; 96375; 96376; 99152; 99153; C1725; C1753; C1769; C1874; C1887; C1894; C9600; J0583; J1200; J2250; J3010; J3490; J7030; J7050; J9999; Q9967

== ENCOUNTER → 2024-12-30 15:15 | Outpatient (BNVA) | payer MEDICARE, SELFPAY | PROVIDERS: PCP Nurse Practitioner Family; Visit Provider Nurse Practitioner Family | DX: Z86.79 Personal history of other diseases of the circulatory system (principal) | CPT/HCPCS: 36415; 80053; 83880; 85025; 93005; 99213 ==

== ENCOUNTER → 2025-03-07 15:42 | Outpatient (BNVA) | payer MEDICARE, SELFPAY | PROVIDERS: PCP Nurse Practitioner Family; Visit Provider Internal Medicine | DX: I25.10 Atherosclerotic heart disease of native coronary artery without angina pectoris (principal); Z79.01 Long term (current) use of anticoagulants; Z79.82 Long term (current) use of aspirin; Z95.5 Presence of coronary angioplasty implant and graft; Z87.891 Personal history of nicotine dependence | CPT/HCPCS: 99214 ==

== ENCOUNTER → 2025-07-18 07:37 | Outpatient (BNVA) | payer MEDICARE, SELFPAY | PROVIDERS: PCP Nurse Practitioner Family; Visit Provider Dermatology | DX: L81.4 Other melanin hyperpigmentation (principal); L82.1 Other seborrheic keratosis; L73.8 Other specified follicular disorders; L57.0 Actinic keratosis; L82.0 Inflamed seborrheic keratosis; L53.8 Other specified erythematous conditions; R20.8 Other disturbances of skin sensation; D48.5 Neoplasm of uncertain behavior of skin | CPT/HCPCS: 11102; 17004; 17110; 99203 ==

== ENCOUNTER → 2025-08-23 07:50 | Outpatient (BNVA) | payer MEDICARE, SELFPAY | PROVIDERS: PCP Nurse Practitioner Family; Visit Provider Dermatology | DX: C44.311 Basal cell carcinoma of skin of nose (principal) | CPT/HCPCS: 14060; 17311 ==

== ENCOUNTER → 2025-09-02 07:59 | Outpatient (BNVA) | payer MEDICARE, SELFPAY | PROVIDERS: PCP Nurse Practitioner Family; Visit Provider Dermatology | DX: C44.311 Basal cell carcinoma of skin of nose (principal) | CPT/HCPCS: 99213 ==

== ENCOUNTER → 2025-09-05 11:48 | Outpatient (BNVA) | payer MEDICARE, SELFPAY | PROVIDERS: PCP Nurse Practitioner Family; Visit Provider Internal Medicine | DX: I25.10 Atherosclerotic heart disease of native coronary artery without angina pectoris (principal); Z87.891 Personal history of nicotine dependence | CPT/HCPCS: 99213 ==